=== PATIENT | male | born 1960 | race Caucasian/White ===

== ENCOUNTER 2024-11-22 10:13 | Inpatient (IN) | payer MEDICARE, SELFPAY ==
[2024-11-22] VITALS (9 sets, daily range): BP systolic 134–163; BP diastolic 73–93; PULSE 85–100; RESP 16–28; TEMP 36.8–39.6; O2SAT 93–97; BMI 36.6; BMI 37.0
--- NOTE | 2024-11-22 10:54 | EKG12_ITS ---
Test Reason : GENERAL Blood Pressure : */* mmHG Vent. Rate : 90 BPM Atrial Rate : 90 BPM P-R Int : 178 ms QRS Dur : 118 ms QT Int : 366 ms P-R-T Axes : 52 -34 47 degrees QTcB Int : 447 ms Normal sinus rhythm Left axis deviation Non-specific intra-ventricular conduction delay Abnormal ECG Confirmed by NICHOLAS HASSAN, COBY ([id number]), video effects editor JOSE SILVER ([id number]) on 11/25/2024 9:17:05 AM Referred By: Dm Rudd Confirmed By: COBY PETERSON MD
[2024-11-22] MEDS: 0.9% Normal Saline (1000mL) 1,000 ML 999 ML IV ×2 (11:12→13:10)
[2024-11-22] MEDS: Ondansetron 4 MG/2 ML Vial IV ×2 (11:13→15:53)
[2024-11-22 11:20] LABS: Absolute Neutrophil Count 12.6 X10^3/uL (2.0-7.7); Basophil# 0.04 X10^3/uL; Basophil% 0.3 % (0-1); Eosinophil# 0.61 X10^3/uL; Eosinophils% 3.8 % (0-5); Hematocrit 43.7 % (40-54); Hemoglobin 15.1 g/dL (13.0-16.5); Lymphocyte % 7.5 % (19-41); Mean Corp Hgb Conc 34.6 g/dL (32-36); Mean Corpuscular Hgb 29.6 pg (27.0-32.0); Mean Corpuscular Volume 85.7 fL (80-94); Mean Platelet Vol. 9.2 fl (6.2-12.0); Monocyte# 1.44 X10^3/uL; NRBC Flagged by Analyzer 0 % (0-5); Neutrophil # 12.57 X10^3/uL (2.7-7.7); Neutrophil % 78.8 % (47-70); POSITIVE MORPHOLOGY YES; Platelet Count 225 K/mm3 (150-450); RBC Distribution Width CV 13.6 % (11.6-14.6); RBC Distribution Width SD 42.3 fl (35.1-43.9)
[2024-11-22 11:54] LABS: Lipase 16 U/L (13-75); Troponin T High Sensitivity 14 ng/L (<=22)
--- NOTE | 2024-11-22 12:01 | CT_ITS ---
EXAM: CT Abdomen and Pelvis With Intravenous Contrast CLINICAL INDICATION: RULE OUT STONE, OBSTRUCTION TECHNIQUE: Axial computed tomography images of the abdomen and pelvis with intravenous contrast. This CT exam was performed using one or more of the following dose reduction techniques: automated exposure control, adjustment of the mA and/or kV according to patient size, and/or use of iterative reconstruction technique. COMPARISON: No relevant prior studies available. FINDINGS: LUNG BASES: Unremarkable. No mass. No consolidation. ABDOMEN: LIVER: Hepatomegaly with fatty infiltration. GALLBLADDER AND BILE DUCTS: Unremarkable. No calcified stones. No ductal dilation. PANCREAS: Unremarkable. No mass. No ductal dilation. SPLEEN: Mild splenomegaly. ADRENALS: Unremarkable. No mass. KIDNEYS AND URETERS: Lobulated heterogeneously enhancing lesion of the left kidney measuring up to 16.6 cm. Associated moderate hydronephrosis. This is concerning for RCC with obstruction. Right nephrolithiasis without hydronephrosis. STOMACH AND BOWEL: Fecal retention in the colon consistent with constipation. No obstruction. No mucosal thickening. PELVIS: APPENDIX: No findings to suggest acute appendicitis. BLADDER: Unremarkable. No mass. REPRODUCTIVE: Unremarkable as visualized. ABDOMEN and PELVIS: INTRAPERITONEAL SPACE: Unremarkable. No free air. No significant fluid collection. BONES/JOINTS: No acute fracture. No dislocation. SOFT TISSUES: Unremarkable. VASCULATURE: Unremarkable. No abdominal aortic aneurysm. LYMPH NODES: Unremarkable. No enlarged lymph nodes. CT/Abdomen/Pelvis W IV Cont ONLY IMPRESSION: 1. Lobulated heterogeneously enhancing lesion of the left kidney measuring up to 16.6 cm. Associated moderate hydronephrosis. This is concerning for renal cell carcinoma with obstruction. 2. Hepatomegaly with fatty infiltration. 3. Right nephrolithiasis without hydronephrosis. 4. Fecal retention in the colon consistent with constipation. Findings were discussed with Dr. Pierre by phone on 11/22/2024 at 1315 hours. Reading Location: [facility]
--- NOTE | 2024-11-22 12:03 | EDS_ITS ---
HPI History of Present Illness Chief Complaint: Complaint Narrative Narrative: Patient is a 64-year-old male who is presenting to the ER with multiple complaints. Patient is at bedside. Patient has been sick for approximately 3 weeks. Patient's had dry cough, sinus congestion, flulike symptoms for 3 weeks. Patient traveled to [place] and came back last week. Patient has multiple family members that have flulike symptoms as well. Patient started having blood in his urine last evening and today. Patient's also had 3 days of nausea and vomiting. Patient has had dry cough for 3 weeks, patient has been using NyQuil. Patient has cardiac history, he has 4 stents, 100% blocked RCA, this was fixed back in 2019. Patient feels like he has some acid reflux or heartburn. Patient has no headache or neck pain. Patient has mild shortness of breath, no chest pain tightness. Patient has not had a bowel movement in 2 days, patient has been use [id number] stool softeners. Patient has had flatulence. No history of kidney stone. Patient has no pain to his testicles. Patient did notice a dull ache in his left lower back over the past week, he currently has no left lower back pain, flank pain. He does have some mild left lower quadrant fullness. [facility] Medical History (Updated 11/22/24 @ 17:11 by Radha Christiansen) Anxiety Depression Non-smoker CPAP (continuous positive airway pressure) dependence Chest pain Sleep apnea Sleep apnea High triglycerides Hypertension Coronary artery disease Home Medications ?Medication ?Instructions ?Recorded ?Last Taken ?Type aspirin 81 mg tablet,delayed 81 mg PO DAILY 11/22/24 U nknown History release (Adult Aspirin Regimen) carvedilol 6.25 mg tablet 6.25 mg PO BID 11/22/24 Unkn own History clopidogrel 75 mg tablet 75 mg PO DAILY 11/22/24 Unkn own History gemfibrozil 600 mg tablet 600 mg PO BID 11/22/24 Unkno wn History isosorbide mononitrate 60 mg 60 mg PO DAILY 11/22/24 U nknown History tablet,extended release 24 hr losartan 25 mg tablet 25 mg PO DAILY 11/22/24 Unkn own History multivitamin (Daily Multi-Vitamin 1 tab PO DAILY 11/22 Unknown History tablet) vitamin B complex 1 tab PO DAILY 11/22/24 Unkn own History vitamins A,C,A-wopu-cusfzx 2,148 2 tab PO BID 11/22/24 Unknown History mcg-113 mg-45 mg-17.4 mg tablet (Eye Multivitamin) Allergy/AdvReac Type Severity Reaction Status Date / Time No Known Allergies Allergy Verified 11/22/24 10:15 Surgical History (Updated 11/22/24 @ 17:10 by Radha Christiansen) History of coronary artery stent placement Status post placement of stent in right coronary artery Social History Smoking Status: Never smoker EXAM Physical Exam Const Vital Signs: 11/22/24 10:15 11/22/24 10:17 11/22/24 12:14 Temperature 98.3 F 98.4 F Temperature Source Oral Oral Pulse Rate 85 88 85 Respiratory Rate 16 18 18 Blood Pressure 142/82 H 163/78 H 161/82 H Blood Pressure Mean 102 106 108 Pulse Ox 97 95 93 Oxygen Delivery Method Room Air Room Air 11/22/24 12:55 11/22/24 14:00 Temperature 103.2 F H 103 F H Temperature Source Oral Oral Pulse Rate 90 Respiratory Rate 18 Blood Pressure 134/73 H Blood Pressure Mean 93 Pulse Ox 94 Oxygen Delivery Method MDM MDM MDM Narrative Medical decision making narrative: Patient seen and examined: Patient had flulike symptoms for the past 3 weeks, nausea and vomiting for 3 days, hematuria last night and today. No history of kidney stones. Patient will have IV established, be given IV fluids, abdominal testing, IV Zofran. Differential diagnosis includes but is not limited to: Sinus congestion, flulike symptoms, pneumonia, hematuria, UTI, pyelonephritis, kidney stone, gastroenteritis Relevant laboratory interpretation: Patient white blood cells were 16. Sodium was 132,, dioxide 16, anion gap 18, BUN and creatinine were 21/1.59. Patient creatinine is higher than his normal baseline. Like his acid normal. Urine shows evidence of hemorrhagic cystitis. Radiological studies: CT of the abdomen pelvis shows lobulated heterogeneously enhancing lesion in the left kidney measuring up to 16.6 cm. Moderate hydronephrosis. Concerning for renal cell carcinoma with obstruction. Constipation noted as well. Reevaluation: Social barriers to healthcare: There are no food insecurities, there is no issue with transportation, there are no insurance barriers Disposition: Patient will be admitted to the hospitalist. Patient is given 2 L of IV fluid. Patient was given IV Rocephin. Patient will be admitted to the hospitalist with consultation for neurologist and additional consultations as needed. I did a sit down with the patient and for 10 to 15 minutes and discussed patient's lab work, urine findings, and CAT scans and potential differential diagnosis and therapies that might be done. They are aware of the left renal cell mass. 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 Patient and thankful for time. 1505 I have spoken to Dr. Campos. He will be in consultation he is aware of the left renal cell carcinoma, 16 cm, with, moderate hydronephrosis and concern for obstruction. I spoke to him in the operating room, there was a male nurse that help communicate and then I was on speaker phone with the patient information with Dr. Peraza and discussing patient's case. He agrees in consultation, recommends admission to the hospitalist. Diagnosis: Left renal cell mass 16 cm, UTI, hemorrhagic cystitis, dehydration, leukocytosis, moderate hydronephrosis Lab Data Labs: Laboratory Results - last 24 hr 11/22/24 11/22/24 11:10 12:26 WBC 16.0 H RBC 5.10 Hgb 15.1 Hct 43.7 MCV 85.7 MCH 29.6 MCHC 34.6 RDW Std Deviation 42.3 RDW Coeff of Matilde 13.6 Plt Count 225 MPV 9.2 Immature Gran % (Auto) 0.600 Neut % (Auto) 78.8 H Lymph % (Auto) 7.5 L [place] % (Auto) 9.0 Eos % (Auto) 3.8 Baso % (Auto) 0.3 Absolute Neuts (auto) 12.6 H Absolute Lymphs (auto) 1.20 Nucleated RBC % 0 Platelet Estimate A Polychromasia 1+ Sodium 132 L Potassium 4.1 Chloride 98 Carbon Dioxide 16.2 L Anion Gap 18 H BUN 21 H Creatinine 1.59 H Estim Creat Clear Calc 61.67 Est GFR (MDRD) Non-Af 48 L BUN/Creatinine Ratio 13.0 Glucose 115 H Calcium 8.9 Total Bilirubin < 0.15 AST 831 H ALT 49 H Alkaline Phosphatase 50 Troponin T High Sens 14 Total Protein 6.7 Albumin 3.9 Globulin 2.7 Albumin/Globulin Ratio 1.4 Lipase 16 Urine Color Brown Urine Clarity Cloudy Urine pH 6.5 Ur Specific [place] 1.020 Urine Protein 500 H Urine Glucose (UA) Normal Urine Ketones 5 H Urine Occult Blood 250 H Urine Nitrite Negative Urine Bilirubin Negative Urine Urobilinogen Normal Ur Leukocyte Esterase 100 H Urine RBC 5-10 SEEN Urine WBC 10-25 SEEN Ur Squamous Epith Cells 5-10 SEEN Ur Transition Epith Cell 0-5 SEEN Amorphous Sediment 3+ Urine Bacteria 1+ Urine Mucus 0 SEEN Radiography Diagnostic Testing: Clinical Impression(s) from Imaging Studies Abdomen/Pelvis CT 11/22/24 12:01 IMPRESSION: 1. Lobulated heterogeneously enhancing lesion of the left kidney measuring up to 16.6 cm. Associated moderate hydronephrosis. This is concerning for renal cell carcinoma with obstruction. 2. Hepatomegaly with fatty infiltration. 3. Right nephrolithiasis without hydronephrosis. 4. Fecal retention in the colon consistent with constipation. Findings were discussed with Dr. Pierre by phone on 11/22/2024 at 1315 hours. Reading [facility] Discharge Plan Dx/Rx/DC Orders Clinical Impression: Left renal mass, UTI (urinary tract infection), Hematuria, Acute dehydration, Flu-like symptoms Disposition Disposition: Acute Care Hospital [facility] Discharge Date/Time: 11/22/24 16:59
[2024-11-22 12:06] LABS: ALB/GLOB Ratio 1.4 RATIO (0.9-2.4); Alanine Aminotransfer ALT/SGPT 49 U/L (<=46); Albumin, Serum 3.9 g/dL (3.4-4.8); Alkaline Phosphatase 50 U/L (40-129); Anion Gap 18 (5-15); BUN 21 mg/dL (4-19); Calcium,Total 8.9 mg/dL (7.6-11.0); Carbon Dioxide 16.2 mmol/L (21.0-32.0); Chloride 98 mmol/L (98-108); Creatinine, Serum 1.59 mg/dL (0.70-1.20); EST Glomerular Filtration Rate 48 (>60); Estimated Creatinine Clearance 61.67 ml/min (50-250); Globulin 2.7 g/dL (2.2-4.2); Glucose 115 mg/dL (70-99); Potassium 4.1 mmol/L (3.3-5.1); Protein, Total 6.7 g/dL (5.9-8.4); Sodium Level 132 mmol/L (133-145); Total Bilirubin < 0.15 mg/dL (0.00-1.30)
[2024-11-22 12:09] LABS: AST(SGOT) 831 U/L (<=37)
[2024-11-22 12:33] LABS: Mucous, Urine 0 SEEN /hpf (<or=2+)
[2024-11-22 12:38] LABS: Color, Urine Brown (Yellow); Glucose, Dipstick Normal (Normal); Ketone-Dipstick 5 mg/dl (Negative); Leukocyte Esterase-Dipstick 100 /ul (Negative); Nitrite-Dipstick Negative (Negative); Occult Blood-Urine 250 /ul (Negative); Protein-Dipstick 500 mg/dl (Negative); Urine Bilirubin Dipstick Negative (Negative); Urine Clarity Cloudy (Clear); Urine Urobilinogen Normal (Normal); Urine pH 6.5 (5.0 - 8.0)
[2024-11-22 12:47] LABS: Red Blood Cells-Urine 5-10 SEEN /hpf (0-5)
[2024-11-22 12:48] LABS: Amorphous Sediment 3+; Bacteria 1+ /hpf (None Seen); Squamous Epithelial Cells - UA 5-10 SEEN /hpf (0-5); Transitional Epithelial - Ur 0-5 SEEN /hpf (0-5); White Blood Cells 10-25 SEEN /hpf (0-5)
[2024-11-22] MEDS: Acetaminophen 325 MG Tablet 650 MG PO ×2 (13:10→20:13)
[2024-11-22 13:19] LABS: Platelet Estimate A (ADEQ); Polychromasia 1+
[2024-11-22] MEDS: Ceftriaxone 1 GM/50 ML BAG IV (13:36)
[2024-11-22] MEDS: Mag Hydrox/Al Hydrox/Simeth 30 ML UDC PO (15:53)
[2024-11-22] MEDS: Lidocaine 2% Viscous15 ML UDC 15 ML PO (15:53)
[2024-11-22] MEDS: Morphine 4 MG/ML Syringe IV (15:54)
[2024-11-22] MEDS: Famotidine 200 MG/20 ML MDV 20 MG in 0.9% Normal Saline (Pres. free 8 ML 300 MG IV (15:56)
--- NOTE | 2024-11-22 16:26 | HP.PCM.HOS_ITS ---
HPI - General General Date of Admission: 11/22/24 Date of Service: 11/22/24 Chief Complaint: Blood and urine HPI Narrative CLINTON MONAHAN, is a 64-year-old male with history of sleep apnea, hypertension, coronary artery disease with history of right stent placement presented to [facility] ED 11/22/2024 with multiple complaints. He reports he has been sick for about 3 weeks with dry cough, sinus congestion and flulike symptoms. He traveled to [place] and came back last week and has multiple sick contacts. Additionally patient started having blood in his urine last night and today with 3 days of associated nausea and vomiting. Also dry cough for 3 weeks and some heartburn, mild shortness of breath but no chest pain. In the ED patient initially afebrile however developed a temperature of 103.2 otherwise vitally stable, CMP demonstrated sodium of 132 with a bicarb of 16, anion gap of 18 and creatinine of 1.59, AST 31 with ALT of 49. But no previous values or baselines available. White blood cell count of 16 and patient UA with occult blood, leuk esterase, 1+ bacteria. CT of the abdomen obtained which showed a lobulated heterogenously enhancing lesion of the left kidney measuring up to 16.6 cm and moderate hydronephrosis with concern for renal cell carcinoma with obstruction. Urology contacted who recommended medical admission they would see patient in consult. Patient evaluated at bedside, reports that he did have some shortness of breath and cough with flulike symptoms for a couple of weeks but over the past 3 days he has had some suprapubic discomfort and some dull left aching and since yesterday he has had hematuria, has had some intermittent nausea and he and family member do report that he has had fevers off and on for the past couple of weeks. Also notes constipation and has not had a bowel movement 2 to 3 days which is abnormal for him. [facility] Medical History (Updated 11/22/24 @ 16:[address] Belkis Mills MD) Coronary artery disease High triglycerides Hypertension Sleep apnea Sleep apnea Home Medications ?Medication ?Instructions ?Recorded ?Last Taken ?Type aspirin 81 mg tablet,delayed 81 mg PO DAILY 11/22/24 U nknown History release (Adult Aspirin Regimen) carvedilol 6.25 mg tablet 6.25 mg PO BID 11/22/24 Unkn own History clopidogrel 75 mg tablet 75 mg PO DAILY 11/22/24 Unkn own History gemfibrozil 600 mg tablet 600 mg PO BID 11/22/24 Unkno wn History isosorbide mononitrate 60 mg 60 mg PO DAILY 11/22/24 U nknown History tablet,extended release 24 hr losartan 25 mg tablet 25 mg PO DAILY 11/22/24 Unkn own History multivitamin (Daily Multi-Vitamin 1 tab PO DAILY 11/22 Unknown History tablet) vitamin B complex 1 tab PO DAILY 11/22/24 Unkn own History vitamins A,C,I-mlwa-dffajg 2,148 2 tab PO BID 11/22/24 Unknown History mcg-113 mg-45 mg-17.4 mg tablet (Eye Multivitamin) Allergy/AdvReac Type Severity Reaction Status Date / Time No Known Allergies Allergy Verified 11/22/24 10:15 Surgical History (Updated 11/22/24 @ 10:28 by Codi Hdez) Status post placement of stent in right coronary artery Social History Smoking Status: Never smoker ROS ROS Narrative General: Intermittent fevers over the past couple of weeks HENT: Denies headache, had some intermittent URI-like symptoms EYES: Denies changes in vision Resp: Had had faint cough, had shortness of breath around a week ago, not particularly feeling short of breath today Cardiac: Denies chest pain GI: Suprapubic and some dull left-sided pain, nausea and constipation : Hematuria Extremity: Denies swelling MSK: Denies weakness Neuro: Denies any numbness/tingling Heme: Denies any bleeding or bruising Skin: Denies rashes Psychiatric: No complaints voiced Vital Signs Vital Signs Vital Signs: 11/22/24 10:15 11/22/24 10:17 11/22/24 12:14 Temperature 98.3 F 98.4 F Temperature Source Oral Oral Pulse Rate 85 88 85 Respiratory Rate 16 18 18 Blood Pressure 142/82 H 163/78 H 161/82 H Blood Pressure Mean 102 106 108 Pulse Ox 97 95 93 Oxygen Delivery Method Room Air Room Air 11/22/24 12:55 11/22/24 14:00 11/22/24 16:00 Temperature 103.2 F H 103 F H Temperature Source Oral Oral Pulse Rate 90 98 Respiratory Rate 18 26 H Blood Pressure 134/73 H 143/78 H Blood Pressure Mean 93 99 Pulse Ox 94 93 Oxygen Delivery Method Room Air 11/22/24 16:15 Temperature 100.0 F H Temperature Source Pulse Rate 98 Respiratory Rate 25 H Blood Pressure 143/78 H Blood Pressure Mean 99 Pulse Ox 93 Oxygen Delivery Method Weight Weight: 119.295 kg Body Mass Index (BMI) 36.6 Physical Exam Narrative General: Alert, oriented, appears uncomfortable HEENT: Atraumatic, normocephalic Eyes: Anicteric, normal conjunctiva, extraocular movements grossly intact Neck: Supple Respiratory: Tachypneic but no overt wheezes or rhonchi Cardiovascular: Regular rate and rhythm GI: Soft, nontender overall without rebound, guarding, rigidity Extremities: No edema Musculoskeletal: Moving all extremities Neuro: No overt focal neurological deficits Skin: No rashes appreciated Psych: Cooperative Results Lab / Micro Data 11/22/24 11:10 11/22/24 11:10 Labs: Laboratory Results - last 24 hr 11/22/24 11:10: WBC 16.0 H, RBC 5.10, Hgb 15.1, Hct 43.7, MCV 85.7, MCH 29.6, MCHC 34.6, RDW Std Deviation 42.3, RDW Coeff of Matilde 13.6, Plt Count 225, MPV 9.2, Immature Gran % (Auto) 0.600, Neut % (Auto) 78.8 H, Lymph % (Auto) 7.5 L, [place] % (Auto) 9.0, Eos % (Auto) 3.8, Baso % (Auto) 0.3, Absolute Neuts (auto) 12.6 H, Absolute Lymphs (auto) 1.20, Nucleated RBC % 0, Platelet Estimate A, Polychromasia 1+, Sodium 132 L, Potassium 4.1, Chloride 98, Carbon Dioxide 16.2 L, Anion Gap 18 H, BUN 21 H, Creatinine 1.59 H, Estim Creat Clear Calc 61.67, E st GFR (MDRD) Non-Af 48 L, BUN/Creatinine Ratio 13.0, Glucose 115 H, Calcium 8.9, Total Bilirubin < 0.15, AST 831 H, ALT 49 H, Alkaline Phosphatase 50, Troponin T High Sens 14, Total Protein 6.7, Albumin 3.9, Globulin 2.7, Albumin/Globulin Ratio 1.4, Lipase 16 11/22/24 12:26: Urine Color Brown, Urine Clarity Cloudy, Urine pH 6.5, Ur Specific [place] 1.020, Urine Protein 500 H, Urine Glucose (UA) Normal, Urine Ketones 5 H, Urine Occult Blood 250 H, Urine Nitrite Negative, Urine Bilirubin Negative, Urine Urobilinogen Normal, Ur Leukocyte Esterase 100 H, Urine RBC 5-10 SEEN, Urine WBC 10-25 SEEN, Ur Squamous Epith Cells 5-10 SEEN, Ur Transition Epith Cell 0-5 SEEN, Amorphous Sediment 3+, Urine Bacteria 1+, Urine Mucus 0 SEEN Imaging Radiology Impression Abdomen/Pelvis CT 11/22/24 12:01 IMPRESSION: 1. Lobulated heterogeneously enhancing lesion of the left kidney measuring up to 16.6 cm. Associated moderate hydronephrosis. This is concerning for renal cell carcinoma with obstruction. 2. Hepatomegaly with fatty infiltration. 3. Right nephrolithiasis without hydronephrosis. 4. Fecal retention in the colon consistent with constipation. Findings were discussed with Dr. Pierre by phone on 11/22/2024 at 1315 hours. Reading [facility] Assessment & Plan Assessment/Plan (1) Left renal mass: (2) Hematuria: (3) UTI (urinary tract infection): (4) Hydronephrosis: PLAN: Plan # Kidney lesion with associated moderate hydronephrosis on the left -Lobulated heterogenously enhancing lesion of the left kidney measuring up to 16.6 cm with associated moderate hydronephrosis, concerning for renal cell carcinoma with obstruction -Urology consult -I's and O's -Pain control #Concern for UTI -UA suspicious for UTI, white blood cell count 16 and patient febrile -Will continue empiric antibiotics -Urine culture ordered # KATHIA versus CKD -Patient with creatinine of 1.59 with no previous baseline, unclear if this is acute or chronic -Given kidney mass with moderate hydronephrosis is possible it is acute -IV fluids -Wunning losartan at this time # Elevated liver function tests -Unclear etiology and no previous baseline -CT with hepatomegaly with fatty infiltration -Will hold gemfibrozil -Repeat liver function in the a.m. # History of coronary artery disease -With 4 stents -Will continue carvedilol at lower dose in the event patient may need anesthesia -Patient on aspirin -Holding Plavix for now, will need to clarify if/when this can be resumed given patient's hematuria and if he may undergo intervention #Constipation -Scheduled bowel regimen #DVT ppx: SCDs Belkis Mills MD Charges/Coding Visit Charges Inpatient E&M: 65717 Init Hosp L2
--- NOTE | 2024-11-22 16:43 | CON.PCM.UR_ITS ---
Assessment & Plan Assessment/Plan (1) Hydronephrosis: PLAN: Observation of the hydronephrosis no intervention necessary (2) Flu-like symptoms: PLAN: Multiple new contacts with illness could be related (3) Acute dehydration: (4) Hematuria: PLAN: Observation of the hematuria prior from the bleeding renal mass (5) UTI (urinary tract infection): (6) Left renal mass: PLAN: Large renal mass eventually what the set him up for surgery to perform a left radical nephrectomy but at this point I think he needs to be stabilized and worked up, medically optimized (7) Shortness of breath: PLAN: He does have shortness of breath which does concern me I do not think this is really related to his underlying respiratory illness could be another source? HPI Consult Data Date of Consult: 11/22/24 HPI Narrative Reason for Consultation: Large left renal mass HPI Narrative: CLINTON MONAHAN, is a 64 M who presents to the emergency room with acute illness he has but had several sick contacts and has like a cough and upper respiratory infection and has noticed some mild shortness of breath. He was admitted for he gross hematuria and left flank pain CT scan demonstrates a very large mass in the left kidney no obvious signs of metastatic disease the mass is certainly consistent with a malignancy of the kidney. He does have a history of hypertension, sleep apnea, heart disease requiring multiple heart stents and he sees a senior web engineer in [facility]. Patient is currently be admitted because of this renal mass and also his other symptoms. [facility] Medical History Sleep apnea Sleep apnea High triglycerides Hypertension Coronary artery disease Home Medications ?Medication ?Instructions ?Recorded ?Last Taken ?Type aspirin 81 mg tablet,delayed 81 mg PO DAILY 11/22/24 U nknown History release (Adult Aspirin Regimen) carvedilol 6.25 mg tablet 6.25 mg PO BID 11/22/24 Unkn own History clopidogrel 75 mg tablet 75 mg PO DAILY 11/22/24 Unkn own History gemfibrozil 600 mg tablet 600 mg PO BID 11/22/24 Unkno wn History isosorbide mononitrate 60 mg 60 mg PO DAILY 11/22/24 U nknown History tablet,extended release 24 hr losartan 25 mg tablet 25 mg PO DAILY 11/22/24 Unkn own History multivitamin (Daily Multi-Vitamin 1 tab PO DAILY 11/22 Unknown History tablet) vitamin B complex 1 tab PO DAILY 11/22/24 Unkn own History vitamins A,C,H-ujir-yerfgr 2,148 2 tab PO BID 11/22/24 Unknown History mcg-113 mg-45 mg-17.4 mg tablet (Eye Multivitamin) Allergy/AdvReac Type Severity Reaction Status Date / Time No Known Allergies Allergy Verified 11/22/24 10:15 Surgical History Status post placement of stent in right coronary artery Social History Smoking Status: Never smoker ROS Constitutional Constitutional: Denies chills, fever(s) or malaise Eyes Eyes: Denies blurry vision or change in vision ENT HEENT: Reports none Cardiovascular Cardiovascular: Denies chest pain or palpitations Respiratory/Chest Respiratory/Chest: Denies cough or shortness of breath with exertion Gastrointestinal Gastrointestinal: Denies abdominal pain, constipation or diarrhea Musculoskeletal Musculoskeletal: Denies back pain, joint stiffness or joint swelling Integumentary Integumentary: Denies dry skin, jaundice, lesions or rash Neurologic Neurologic: Denies confusion, syncope or weakness Psychiatric Psychiatric: Reports none; Denies anxiety or depression Endocrine Endocrinology: Denies excessive sweating, fatigue or flushing Hematologic/Lymphatic Hematologic/Lymphatic: Denies anemia, easy bleeding or easy bruising Physical Exam Narrative Somewhat labored breathing 93% on room air Const alert and oriented x3 General Appearance: cooperative HEENT EAC's normal and TM's normal bilaterally Eyes PERRL and EOMs intact bilaterally Neck no lymphadenopathy, supple and no JVD Lymph Lymphatic: no lymphadenopathy noted and no lymphedema noted Cardio regular rate and regular rhythm GI non-tender GI Narrative: Obese soft abdomen Back/Spine no CVA tenderness Skin no rashes or lesions noted Neuro CN's II-XII intact bilaterally Speech: speech normal Motor Exam: strength 5/5 throughout Psych thought process normal and affect normal Attitude: calm Medical Records Data Attestation: I reviewed the patient's medical records Lab / Micro Data 11/22/24 11:10 11/22/24 11:10 Labs: Laboratory Results - last 24 hr 11/22/24 11:10: WBC 16.0 H, RBC 5.10, Hgb 15.1, Hct 43.7, MCV 85.7, MCH 29.6, MCHC 34.6, RDW Std Deviation 42.3, RDW Coeff of Matilde 13.6, Plt Count 225, MPV 9.2, Immature Gran % (Auto) 0.600, Neut % (Auto) 78.8 H, Lymph % (Auto) 7.5 L, [place] % (Auto) 9.0, Eos % (Auto) 3.8, Baso % (Auto) 0.3, Absolute Neuts (auto) 12.6 H, Absolute Lymphs (auto) 1.20, Nucleated RBC % 0, Platelet Estimate A, Polychromasia 1+, Sodium 132 L, Potassium 4.1, Chloride 98, Carbon Dioxide 16.2 L, Anion Gap 18 H, BUN 21 H, Creatinine 1.59 H, Estim Creat Clear Calc 61.67, E st GFR (MDRD) Non-Af 48 L, BUN/Creatinine Ratio 13.0, Glucose 115 H, Calcium 8.9, Total Bilirubin < 0.15, AST 831 H, ALT 49 H, Alkaline Phosphatase 50, Troponin T High Sens 14, Total Protein 6.7, Albumin 3.9, Globulin 2.7, Albumin/Globulin Ratio 1.4, Lipase 16 11/22/24 12:26: Urine Color Brown, Urine Clarity Cloudy, Urine pH 6.5, Ur Specific [place] 1.020, Urine Protein 500 H, Urine Glucose (UA) Normal, Urine Ketones 5 H, Urine Occult Blood 250 H, Urine Nitrite Negative, Urine Bilirubin Negative, Urine Urobilinogen Normal, Ur Leukocyte Esterase 100 H, Urine RBC 5-10 SEEN, Urine WBC 10-25 SEEN, Ur Squamous Epith Cells 5-10 SEEN, Ur Transition Epith Cell 0-5 SEEN, Amorphous Sediment 3+, Urine Bacteria 1+, Urine Mucus 0 SEEN Imaging Radiology Impression Abdomen/Pelvis CT 11/22/24 12:01 IMPRESSION: 1. Lobulated heterogeneously enhancing lesion of the left kidney measuring up to 16.6 cm. Associated moderate hydronephrosis. This is concerning for renal cell carcinoma with obstruction. 2. Hepatomegaly with fatty infiltration. 3. Right nephrolithiasis without hydronephrosis. 4. Fecal retention in the colon consistent with constipation. Findings were discussed with Dr. Pierre by phone on 11/22/2024 at 1315 hours. Reading [facility]
--- NOTE | 2024-11-22 16:47 | CASEMGMT ---
Care Management Face to Face with patient for initial transition planning/care coordination assessment in the ED. This marketing writer introduced self and role at [facility]. Patient alert and oriented. Patient willing to participate in assessment and is able to answer all questions appropriately. Patient's , Cecile, bedside. Care providers, pharmacy, and demographics verified. Admitting Diagnosis: Left renal mass, Hematuria, UTI, Hydronephrosis Other diagnosis history: sleep apnea, hypertension, coronary artery disease PCP: Elizabeth Saldivar Specialists: Abel Do, corrugator helper at [facility]. A doctor for sleep apnea, but patient could not recall the name. Preferred Pharmacy: [facility] in [place] Insurance: AARP MCR Adv Prescription Benefit: yes Living Will/HPOA: none and denies needing information LNOK: , Cecile and 5 daughters Living Arrangements: live with , oldest daughter, son in law, and grandson. Two story home with 8 steps to enter, then 2 full flights up to patient's bedroom/bathroom. Independent with all ADLs and IADLs at baseline. Transportation: patient drives DME: CPAP HHC: none SNF/Rehab: none Community Resources: none Patient goals: Patient wishes to discharge home, denies need for home health care at this time. Patient denies any further needs or concerns at this time. Disposition Plan: admission to acute; RN CM/SW to follow for discharge planning needs that may arise. Kavya Conti, SNAKER TRACTOR DRIVER, LAST [employer]TER
--- NOTE | 2024-11-22 16:48 | PCM.DC ---
Discharge Instructions Diet Discharge Diet: No restrictions DC O2, CPAP, BIPAP needs Home O2 Discharge instructions: No Follow Up Care Please Follow Up With: Farhat Campos MD When: Call [phone] for an appointment Test Results: Test results from this visit will be discussed in further detail at your follow-up appointment, if applicable. Discharge Plan Admission Admit Date/Time: 11/22/24 15:54 Attending Provider: Belkis Mills Primary Care Provider: Elizabeth Saldivar NP Consulting Providers: Farhat Campos Discharge Orders/Prescriptions Prescriptions: No Action carvedilol 6.25 mg tablet 6.25 mg PO BID gemfibrozil 600 mg tablet 600 mg PO BID Eye Multivitamin 2,148 mcg-113 mg-45 mg-17.4mg tablet 2 tab PO BID Rx Instructions: administer with AM and PM meals vitamin B complex Tablet 1 tab PO DAILY clopidogrel 75 mg tablet 75 mg PO DAILY isosorbide mononitrate 60 mg tablet extended release 24 hr 60 mg PO DAILY losartan 25 mg tablet 25 mg PO DAILY aspirin [Adult Aspirin Regimen] 81 mg tablet,delayed release (DR/EC) 81 mg PO DAILY multivitamin [Daily Multi-Vitamin] Tablet 1 tab PO DAILY Referrals / Follow Up: Elizabeth Saldivar NP, BROADCAST OPERATIONS MANAGER-C [Primary Care Provider] -
[2024-11-22 16:58] LABS: Lactic Acid 1.3 mmol/L (0.0-2.0)
[2024-11-22] MEDS: 0.9% Normal Saline (1000mL) 1,000 ML 50 ML IV (18:07)
[2024-11-22] MEDS: Carvedilol 3.125 MG TABLET PO (18:10)
[2024-11-22] MEDS: Senna/Docusate Sodium 1 Tablet 2 TABLET PO (22:05)
[2024-11-23] VITALS (16 sets, daily range): BP systolic 117–159; BP diastolic 69–96; PULSE 75–99; RESP 18–38; TEMP 36.5–39.5; O2SAT 88–97; BMI 37.0
[2024-11-23] MEDS: Acetaminophen 325 MG Tablet 650 MG PO ×3 (02:16→16:02)
[2024-11-23 07:16] LABS: Absolute Neutrophil Count 13.7 X10^3/uL (2.0-7.7); Basophil# 0.07 X10^3/uL; Basophil% 0.4 % (0-1); Eosinophil# 0.07 X10^3/uL; Eosinophils% 0.4 % (0-5); Hematocrit 42.8 % (40-54); Hemoglobin 14.7 g/dL (13.0-16.5); Lymphocyte % 9.1 % (19-41); Mean Corp Hgb Conc 34.3 g/dL (32-36); Mean Corpuscular Hgb 30.1 pg (27.0-32.0); Mean Corpuscular Volume 87.7 fL (80-94); Mean Platelet Vol. 9.6 fl (6.2-12.0); Monocyte# 1.86 X10^3/uL; Monocyte% 10.6 % (0-10); NRBC Flagged by Analyzer 0 % (0-5); Neutrophil # 13.69 X10^3/uL (2.7-7.7); Neutrophil % 78.3 % (47-70); POSITIVE DIFFERENTIAL YES; POSITIVE MORPHOLOGY YES; Platelet Count 193 K/mm3 (150-450); RBC Distribution Width SD 44.7 fl (35.1-43.9); Red Blood Count 4.88 M/mm3 (4.6-6.2); White Blood Count 17.5 K/mm3 (4.4-11.0)
[2024-11-23 07:28] LABS: Differential Indicated SCAN CRITERIA MET
--- NOTE | 2024-11-23 08:03 | NURSING ---
on step down monitor as nursing measure
[2024-11-23] MEDS: Carvedilol 3.125 MG TABLET PO ×2 (08:08→16:04)
[2024-11-23] MEDS: Senna/Docusate Sodium 1 Tablet 2 TABLET PO ×2 (08:08→21:02)
[2024-11-23] MEDS: Aspirin E.C. 81 MG Tablet PO (08:08)
[2024-11-23] MEDS: oxyCODONE 5 MG Tablet PO ×2 (08:08→21:00)
[2024-11-23] MEDS: Isosorbide Mononitrate 60 MG Tablet PO (08:09)
[2024-11-23 08:13] LABS: ALB/GLOB Ratio 1.1 RATIO (0.9-2.4); AST(SGOT) 567 U/L (<=37); Alanine Aminotransfer ALT/SGPT 39 U/L (<=46); Albumin, Serum 3.4 g/dL (3.4-4.8); Alkaline Phosphatase 43 U/L (40-129); Anion Gap 15 (5-15); BUN 24 mg/dL (4-19); Calcium,Total 8.2 mg/dL (7.6-11.0); Carbon Dioxide 18.4 mmol/L (21.0-32.0); Chloride 99 mmol/L (98-108); Creatinine, Serum 1.85 mg/dL (0.70-1.20); EST Glomerular Filtration Rate 40 (>60); Estimated Creatinine Clearance 53.25 ml/min (50-250); Glucose 112 mg/dL (70-99); Potassium 4.1 mmol/L (3.3-5.1); Protein, Total 6.5 g/dL (5.9-8.4); Sodium Level 133 mmol/L (133-145); Total Bilirubin 0.68 mg/dL (0.00-1.30)
--- NOTE | 2024-11-23 08:35 | PN.HOSP_ITS ---
Subjective Subjective He did have a fever overnight to 103,, urology is planning to put a stent in to help drain the kidney Objective Data Objective Data Vital Signs: Vital Signs Temp Pulse Resp BP Pulse Ox O2 Del Method O2 Flow Rate 97.7 F L 87 24 H 145/80 H 96 Room Air 2 11/23/24 07:56 11/23/24 08:02 11/23/24 08:02 11/23/24 08:02 11/23/24 08:02 11/23/24 07:56 11/22/24 20:37 Oxygen Flow Rate (L/min) 2 Oxygen Delivery Method Room Air Weight: 265 lb 6.4 oz Body Mass Index (BMI) 37.0 Intake & Output: Intake and Output for Last 24 Hours 11/22/24 11/23/24 11/24/24 03:59 03:59 03:59 Intake Total 2260 / 2260 Output Total 700 / 700 Balance 1560 / 1560 Lab / Micro Data 11/23/24 06:42 11/23/24 06:42 Labs: Laboratory Results - last 24 hr 11/22/24 11:10: WBC 16.0 H, RBC 5.10, Hgb 15.1, Hct 43.7, MCV 85.7, MCH 29.6, MCHC 34.6, RDW Std Deviation 42.3, RDW Coeff of Matilde 13.6, Plt Count 225, MPV 9.2, Immature Gran % (Auto) 0.600, Neut % (Auto) 78.8 H, Lymph % (Auto) 7.5 L, [place] % (Auto) 9.0, Eos % (Auto) 3.8, Baso % (Auto) 0.3, Absolute Neuts (auto) 12.6 H, Absolute Lymphs (auto) 1.20, Nucleated RBC % 0, Platelet Estimate A, Polychromasia 1+, Sodium 132 L, Potassium 4.1, Chloride 98, Carbon Dioxide 16.2 L, Anion Gap 18 H, BUN 21 H, Creatinine 1.59 H, Estim Creat Clear Calc 61.67, E st GFR (MDRD) Non-Af 48 L, BUN/Creatinine Ratio 13.0, Glucose 115 H, Calcium 8.9, Total Bilirubin < 0.15, AST 831 H, ALT 49 H, Alkaline Phosphatase 50, Troponin T High Sens 14, Total Protein 6.7, Albumin 3.9, Globulin 2.7, Albumin/Globulin Ratio 1.4, Lipase 16 11/22/24 12:26: Urine Color Brown, Urine Clarity Cloudy, Urine pH 6.5, Ur Specific [place] 1.020, Urine Protein 500 H, Urine Glucose (UA) Normal, Urine Ketones 5 H, Urine Occult Blood 250 H, Urine Nitrite Negative, Urine Bilirubin Negative, Urine Urobilinogen Normal, Ur Leukocyte Esterase 100 H, Urine RBC 5-10 SEEN, Urine WBC 10-25 SEEN, Ur Squamous Epith Cells 5-10 SEEN, Ur Transition Epith Cell 0-5 SEEN, Amorphous Sediment 3+, Urine Bacteria 1+, Urine Mucus 0 SEEN 11/22/24 16:00: Lactic Acid 1.3 11/23/24 06:42: WBC 17.5 H, RBC 4.88, Hgb 14.7, Hct 42.8, MCV 87.7, MCH 30.1, MCHC 34.3, RDW Std Deviation 44.7 H, RDW Coeff of Matilde 14.0, Plt Count 193, MPV 9.6, Immature Gran % (Auto) 1.200 H, Neut % (Auto) 78.3 H, Lymph % (Auto) 9.1 L, [place] % (Auto) 10.6 H, Eos % (Auto) 0.4, Baso % (Auto) 0.4, Absolute Neuts (auto) 13.7 H, Absolute Lymphs (auto) 1.60, Nucleated RBC % 0, Sodium 133, Potassium 4.1, Chloride 99, Carbon Dioxide 18.4 L, Anion Gap 15, BUN 24 H, Creatinine 1.85 H, Estim Creat Clear Calc 53.25, Est GFR (MDRD) Non-Af 40 L, BUN/Creatinine Ratio 13.0, Glucose 112 H, Calcium 8.2, Total Bilirubin 0.68, AST 567 H, ALT 39, Alkaline Phosphatase 43, Total Protein 6.5, Albumin 3.4, Globulin 3.0, Albumin/Globulin Ratio 1.1 Micro: Microbiology 11/23/24 01:45 Mucosa - Nasopharyngeal Respiratory Panel (PCR) - Final 11/23/24 02:00 Nasal Secretion SARS-CoV-2 Antigen (Rapid) - Final Radiography Diagnostic Testing: Radiology Impression Abdomen/Pelvis CT 11/22/24 12:01 IMPRESSION: 1. Lobulated heterogeneously enhancing lesion of the left kidney measuring up to 16.6 cm. Associated moderate hydronephrosis. This is concerning for renal cell carcinoma with obstruction. 2. Hepatomegaly with fatty infiltration. 3. Right nephrolithiasis without hydronephrosis. 4. Fecal retention in the colon consistent with constipation. Findings were discussed with Dr. Pierre by phone on 11/22/2024 at 1315 hours. Reading Location: [facility] Physical Exam Narrative General: Alert, Oriented x3, Cooperative, No apparent distress HEENT: Atraumatic, PERRLA, EOMI, Normocephalic Oral: Moist Mucosa Neck: Supple, No JVD Lungs: Diminished, Normal air movement, No rhonchi, No wheeze, No rales Cardiovascular: Tachycardic, Regular Rhythm, Normal S1, Normal S2, No murmurs Abdomen: Soft, Non Tender, Non-Distended, No Hepato-splenomegaly Extremities: No edema, Capillary Refill Less than 3 Seconds Skin: No rashes, No breakdown Musculoskeletal: No Tenderness to Palpation of Joints or Extremities Neurological: No focal neurological deficits, Motor Exam 5/5 strength throughout, Sensory exam intact to light touch and pain Psych/Mental Status: Flat Assessment & Plan Assessment/Plan (1) Left renal mass: (2) Hematuria: (3) UTI (urinary tract infection): (4) Hydronephrosis: PLAN: Plan 1. Left renal mass with hydronephrosis and UTI/KATHIA versus CKD ? Appreciate urology's assistance, plan for stent in the morning ? Continue with antibiotics ? Continue with IV fluids ? Cultures are pending ? If the white count continues to climb tomorrow, will broaden antibiotics ? Renal function increased today, unclear what his baseline is continue to monitor 2. Essential HTN/HLD/CAD status post stents ? Continue with his home blood pressure medications ? Blood pressure stable ? Will monitor and make adjustments as necessary ? Continue with aspirin hold Plavix ? Given renal function, will hold losartan 3. Constipation ? Continue with suppositories may need MiraLAX ? Fleet enema is available DVT: SCDs Charges/Coding Visit Charges Inpatient E&M: 38383 Subs Hosp L2
--- NOTE | 2024-11-23 09:30 | CON.PCM.UR_ITS ---
HPI Consult Data Date of Consult: 11/23/24 HPI Narrative Reason for Consultation: Left renal mass HPI Narrative: CLINTON MONAHAN, is a 64 M who presents with a very large left renal mass and possible infection he did have a fever of 103 last night white count up to 17,000 the mass is causing obstruction of the upper pole of the left kidney, this could be a source of the infection this make him n.p.o. at midnight tonight and may have to take him to surgery tomorrow just put a stent in just to drain out possible infection of the left kidney as caused by obstruction from this mass eventually this mass would need to be removed but if there is obstruction of the collecting system and infection may have to put him on the schedule for tomorrow for just a stent placement this is a temporary measure to drain any infection to get him optimized for surgery to remove this left large renal mass. So I lizet make him n.p.o. at midnight see him tomorrow morning and we may have to take him to surgery but a stent in that left kidney. [facility] Medical History (Updated 11/22/24 @ 17:11 by Radha Christiansen) Anxiety Depression Non-smoker CPAP (continuous positive airway pressure) dependence Chest pain Sleep apnea Sleep apnea High triglycerides Hypertension Coronary artery disease Home Medications ?Medication ?Instructions ?Recorded ?Last Taken ?Type aspirin 81 mg tablet,delayed 81 mg PO DAILY 11/22/24 U nknown History release (Adult Aspirin Regimen) carvedilol 6.25 mg tablet 6.25 mg PO BID 11/22/24 Unkn own History clopidogrel 75 mg tablet 75 mg PO DAILY 11/22/24 Unkn own History gemfibrozil 600 mg tablet 600 mg PO BID 11/22/24 Unkno wn History isosorbide mononitrate 60 mg 60 mg PO DAILY 11/22/24 U nknown History tablet,extended release 24 hr losartan 25 mg tablet 25 mg PO DAILY 11/22/24 Unkn own History multivitamin (Daily Multi-Vitamin 1 tab PO DAILY 11/22 Unknown History tablet) vitamin B complex 1 tab PO DAILY 11/22/24 Unkn own History vitamins A,C,M-olzp-wtfgyz 2,148 2 tab PO BID 11/22/24 Unknown History mcg-113 mg-45 mg-17.4 mg tablet (Eye Multivitamin) Allergy/AdvReac Type Severity Reaction Status Date / Time No Known Allergies Allergy Verified 11/22/24 10:15 Surgical History (Updated 11/22/24 @ 17:10 by Radha Christiansen) History of coronary artery stent placement Status post placement of stent in right coronary artery Social History Smoking Status: Never smoker Lab / Micro Data 11/23/24 06:42 11/23/24 06:42 Labs: Laboratory Results - last 24 hr 11/22/24 11:10: WBC 16.0 H, RBC 5.10, Hgb 15.1, Hct 43.7, MCV 85.7, MCH 29.6, MCHC 34.6, RDW Std Deviation 42.3, RDW Coeff of Matilde 13.6, Plt Count 225, MPV 9.2, Immature Gran % (Auto) 0.600, Neut % (Auto) 78.8 H, Lymph % (Auto) 7.5 L, [place] % (Auto) 9.0, Eos % (Auto) 3.8, Baso % (Auto) 0.3, Absolute Neuts (auto) 12.6 H, Absolute Lymphs (auto) 1.20, Nucleated RBC % 0, Platelet Estimate A, Polychromasia 1+, Sodium 132 L, Potassium 4.1, Chloride 98, Carbon Dioxide 16.2 L, Anion Gap 18 H, BUN 21 H, Creatinine 1.59 H, Estim Creat Clear Calc 61.67, E st GFR (MDRD) Non-Af 48 L, BUN/Creatinine Ratio 13.0, Glucose 115 H, Calcium 8.9, Total Bilirubin < 0.15, AST 831 H, ALT 49 H, Alkaline Phosphatase 50, Troponin T High Sens 14, Total Protein 6.7, Albumin 3.9, Globulin 2.7, Albumin/Globulin Ratio 1.4, Lipase 16 11/22/24 12:26: Urine Color Brown, Urine Clarity Cloudy, Urine pH 6.5, Ur Specific [place] 1.020, Urine Protein 500 H, Urine Glucose (UA) Normal, Urine Ketones 5 H, Urine Occult Blood 250 H, Urine Nitrite Negative, Urine Bilirubin Negative, Urine Urobilinogen Normal, Ur Leukocyte Esterase 100 H, Urine RBC 5-10 SEEN, Urine WBC 10-25 SEEN, Ur Squamous Epith Cells 5-10 SEEN, Ur Transition Epith Cell 0-5 SEEN, Amorphous Sediment 3+, Urine Bacteria 1+, Urine Mucus 0 SEEN 11/22/24 16:00: Lactic Acid 1.3 11/23/24 06:42: WBC 17.5 H, RBC 4.88, Hgb 14.7, Hct 42.8, MCV 87.7, MCH 30.1, MCHC 34.3, RDW Std Deviation 44.7 H, RDW Coeff of Matilde 14.0, Plt Count 193, MPV 9.6, Immature Gran % (Auto) 1.200 H, Neut % (Auto) 78.3 H, Lymph % (Auto) 9.1 L, [place] % (Auto) 10.6 H, Eos % (Auto) 0.4, Baso % (Auto) 0.4, Absolute Neuts (auto) 13.7 H, Absolute Lymphs (auto) 1.60, Nucleated RBC % 0, Diff Path Review December, Sodium 133, Potassium 4.1, Chloride 99, Carbon Dioxide 18.4 L, Anion Gap 15, BUN 24 H, Creatinine 1.85 H, Estim Creat Clear Calc 53.25, Est GFR (MDRD) Non-Af 40 L, BUN/Creatinine Ratio 13.0, Glucose 112 H, Calcium 8.2, Total Bilirubin 0.68, AST 567 H, ALT 39, Alkaline Phosphatase 43, Total Protein 6.5, Albumin 3.4, Globulin 3.0, Albumin/Globulin Ratio 1.1 Micro: Microbiology 11/23/24 01:45 Mucosa - Nasopharyngeal Respiratory Panel (PCR) - Final 11/23/24 02:00 Nasal Secretion SARS-CoV-2 Antigen (Rapid) - Final Imaging Radiology Impression Abdomen/Pelvis CT 11/22/24 12:01 IMPRESSION: 1. Lobulated heterogeneously enhancing lesion of the left kidney measuring up to 16.6 cm. Associated moderate hydronephrosis. This is concerning for renal cell carcinoma with obstruction. 2. Hepatomegaly with fatty infiltration. 3. Right nephrolithiasis without hydronephrosis. 4. Fecal retention in the colon consistent with constipation. Findings were discussed with Dr. Pierre by phone on 11/22/2024 at 1315 hours. Reading Location: [facility]
[2024-11-23] MEDS: Ceftriaxone 1 GM/50 ML BAG IV (09:47)
--- NOTE | 2024-11-23 10:05 | NURSING ---
CPS called to place some o2 bleed onto his own cpap
[2024-11-23 12:58] LABS: Magnesium 1.9 mg/dL (1.5-2.2)
[2024-11-23 13:12] LABS: Phosphorus 3.1 mg/dL (2.7-4.5)
[2024-11-23] MEDS: 0.9% Saline Lock 10 ML Syringe IV ×2 (14:10→16:05)
[2024-11-23] MEDS: Ondansetron 4 MG/2 ML Vial IV (14:10)
[2024-11-23] MEDS: Morphine 2 MG/ML Syringe IV (14:16)
[2024-11-23] MEDS: Bisacodyl 10 MG Suppository RC (16:04)
[2024-11-23] MEDS: proCHLORPERazine 10 MG/2 ML Vial 5 MG IV (16:04)
[2024-11-23] MEDS: 0.9% Normal Saline (1000mL) 1,000 ML 100 ML IV (16:52)
[2024-11-23] MEDS: Polyethylene Glycol 3350 17 GM PACKET PO ×2 (16:56→21:02)
[2024-11-24] VITALS (8 sets, daily range): BP systolic 127–157; BP diastolic 82–92; PULSE 77–89; RESP 16–18; TEMP 36.9–37.2; O2SAT 94–100
[2024-11-24] MEDS: 0.9% Normal Saline (1000mL) 1,000 ML 100 ML IV ×3 (03:00→23:17)
[2024-11-24 07:19] LABS: Absolute Lymphocyte Count 1.08 X10^3/uL (0.83-4.51); Absolute Neutrophil Count 10.3 X10^3/uL (2.0-7.7); Basophil# 0.02 X10^3/uL; Basophil% 0.2 % (0-1); Hematocrit 38.1 % (40-54); Hemoglobin 13.2 g/dL (13.0-16.5); Lymphocyte # 1.08 X10^3/ul (0.83-4.51); Lymphocyte % 8.3 % (19-41); Mean Corp Hgb Conc 34.6 g/dL (32-36); Mean Corpuscular Volume 86.6 fL (80-94); Monocyte# 1.48 X10^3/uL; Monocyte% 11.3 % (0-10); NRBC Flagged by Analyzer 0 % (0-5); Neutrophil % 78.9 % (47-70); POSITIVE MORPHOLOGY YES; Platelet Count 196 K/mm3 (150-450); RBC Distribution Width CV 13.7 % (11.6-14.6); White Blood Count 13.1 K/mm3 (4.4-11.0)
[2024-11-24 07:24] LABS: Differential Indicated SCAN CRITERIA MET
--- NOTE | 2024-11-24 07:29 | PCM.CONS.B ---
Consult Date of Consult: 11/24/24 Reason for Consult 54-year-old male with very large mass in the left kidney, his white blood count is better this morning his fevers have resolved not having flank pain think we will get a hold off and try to place a stent it actually may be very difficult with a large mass this is only when to do the stent if his white count was continue to rise and his fevers did not get better. Will plan for outpatient nephrectomy once he is optimized once his infection is cleared and his shortness of breath is resolved later on but I will hold off on the procedure this morning.
[2024-11-24 07:40] LABS: ALB/GLOB Ratio 0.9 RATIO (0.9-2.4); AST(SGOT) 314 U/L (<=37); Alanine Aminotransfer ALT/SGPT 34 U/L (<=46); Alkaline Phosphatase 46 U/L (40-129); Anion Gap 14 (5-15); BUN 29 mg/dL (4-19); BUN/Creat Ratio 17.7 RATIO (10-20); Calcium,Total 7.8 mg/dL (7.6-11.0); Carbon Dioxide 16.4 mmol/L (21.0-32.0); Chloride 102 mmol/L (98-108); Creatinine, Serum 1.65 mg/dL (0.70-1.20); EST Glomerular Filtration Rate 46 (>60); Estimated Creatinine Clearance 59.74 ml/min (50-250); Globulin 3.3 g/dL (2.2-4.2); Glucose 126 mg/dL (70-99); Potassium 3.9 mmol/L (3.3-5.1); Protein, Total 6.3 g/dL (5.9-8.4); Sodium Level 132 mmol/L (133-145); Total Bilirubin 0.45 mg/dL (0.00-1.30)
[2024-11-24] MEDS: Isosorbide Mononitrate 60 MG Tablet PO (08:36)
[2024-11-24] MEDS: Aspirin E.C. 81 MG Tablet PO (08:36)
[2024-11-24] MEDS: Carvedilol 3.125 MG TABLET PO ×2 (08:36→16:09)
[2024-11-24] MEDS: Polyethylene Glycol 3350 17 GM PACKET PO ×2 (08:37→20:36)
[2024-11-24] MEDS: Senna/Docusate Sodium 1 Tablet 2 TABLET PO ×2 (08:37→20:36)
[2024-11-24] MEDS: Ceftriaxone 1 GM/50 ML BAG IV (09:16)
--- NOTE | 2024-11-24 10:12 | NURSING ---
downtime documentation 11/24/24 12am until 7am
--- NOTE | 2024-11-24 10:20 | PN.HOSP_ITS ---
Subjective Subjective His numbers are improving but he says he does not feel as well as he did yesterday. Will continue with his treatment for constipation Objective Data Objective Data Vital Signs: Vital Signs Temp Pulse Resp BP Pulse Ox O2 Del Method O2 Flow Rate 98.4 F 89 16 146/82 H 94 Room Air 2 11/24/24 08:30 11/24/24 09:27 11/24/24 08:30 11/24/24 08:30 11/24/24 08:30 11/24/24 08:30 11/24/24 08:30 Oxygen Flow Rate (L/min) 2 Oxygen Delivery Method Room Air Weight: 265 lb 11.2 oz Body Mass Index (BMI) 37.0 Intake & Output: Intake and Output for Last 24 Hours 11/23/24 11/24/24 11/25/24 03:59 03:59 03:59 Intake Total 2260 / 2260 2170.00 / 2170.00 676.67 / 676.67 Output Total 700 / 700 250 / 250 900 / 900 Balance 1560 / 1560 1920.00 / 1920.00 -223.33 / -223.33 Lab / Micro Data 11/24/24 05:35 11/24/24 05:35 Labs: Laboratory Results - last 24 hr 11/23/24 06:42: Phosphorus 3.1, Magnesium 1.9 11/24/24 05:35: WBC 13.1 H, RBC 4.40 L, Hgb 13.2, Hct 38.1 L, MCV 86.6, MCH 30.0, MCHC 34.6, RDW Std Deviation 44.0 H, RDW Coeff of Matilde 13.7, Plt Count 196, MPV 10.0, Immature Gran % (Auto) 1.300 H, Neut % (Auto) 78.9 H, Lymph % (Auto) 8.3 L, [place] % (Auto) 11.3 H, Eos % (Auto) 0.0, Baso % (Auto) 0.2, Absolute Neuts (auto) 10.3 H, Absolute Lymphs (auto) 1.08, Nucleated RBC % 0, Sodium 132 L, Potassium 3.9, Chloride 102, Carbon Dioxide 16.4 L, Anion Gap 14, BUN 29 H, C reatinine 1.65 H, Estim Creat Clear Calc 59.74, Est GFR (MDRD) Non-Af 46 L, BUN/Creatinine Ratio 17.7, Glucose 126 H, Calcium 7.8, Total Bilirubin 0.45, AST 314 H, ALT 34, Alkaline Phosphatase 46, Total Protein 6.3, Albumin 3.0 L, Globulin 3.3, Albumin/Globulin Ratio 0.9 Micro: Microbiology 11/22/24 12:26 Urine, Clean Catch Urine Culture - Preliminary Culture exhibits no growth. 11/23/24 01:45 Mucosa - Nasopharyngeal Respiratory Panel (PCR) - Final 11/23/24 02:00 Nasal Secretion SARS-CoV-2 Antigen (Rapid) - Final Physical Exam Narrative General: Alert, Oriented x3, Cooperative, No apparent distress HEENT: Atraumatic, PERRLA, EOMI, Normocephalic Oral: Moist Mucosa Neck: Supple, No JVD Lungs: Diminished, Normal air movement, No rhonchi, No wheeze, No rales Cardiovascular: Regular rate, Regular Rhythm, Normal S1, Normal S2, No murmurs Abdomen: Soft, Non Tender, Non-Distended, No Hepato-splenomegaly Extremities: No edema, Capillary Refill Less than 3 Seconds Skin: No rashes, No breakdown Musculoskeletal: No Tenderness to Palpation of Joints or Extremities Neurological: No focal neurological deficits, Motor Exam 5/5 strength throughout, Sensory exam intact to light touch and pain Psych/Mental Status: Normal affect, appropriate Assessment & Plan Assessment/Plan (1) Left renal mass: (2) Hematuria: (3) UTI (urinary tract infection): (4) Hydronephrosis: PLAN: Plan 1. Left renal mass with hydronephrosis and UTI/KATHIA versus CKD ? Appreciate urology's assistance ? Continue with antibiotics ? Continue with IV fluids ? Cultures are pending ?White count is improving therefore the stent was canceled and he can likely follow-up as an outpatient for left nephrectomy ? Renal function increased today, unclear what his baseline is continue to monitor 2. Essential HTN/HLD/CAD status post stents ? Continue with his home blood pressure medications ? Blood pressure stable ? Will monitor and make adjustments as necessary ? Continue with aspirin hold Plavix ? Given renal function, will hold losartan 3. Constipation ? Continue with suppositories and MiraLAX ? Fleet enema is available ? May need to proceed to mag citrate this afternoon if he has continued discomfort DVT: SCDs Charges/Coding Visit Charges Inpatient E&M: 97835 Subs Hosp L2
[2024-11-24] MEDS: Magnesium Citrate 300 ML 150 ML PO ×2 (13:46→16:09)
[2024-11-24] MEDS: Acetaminophen 325 MG Tablet 650 MG PO (14:30)
[2024-11-25] VITALS (8 sets, daily range): BP systolic 135–150; BP diastolic 72–83; PULSE 71–81; RESP 18–22; TEMP 36.6–37.3; O2SAT 96–100
[2024-11-25 07:23] LABS: Absolute Lymphocyte Count 1.15 X10^3/uL (0.83-4.51); Absolute Neutrophil Count 9.1 X10^3/uL (2.0-7.7); Basophil# 0.04 X10^3/uL; Basophil% 0.3 % (0-1); Eosinophil# 0.02 X10^3/uL; Eosinophils% 0.2 % (0-5); Hematocrit 34.7 % (40-54); Hemoglobin 12.1 g/dL (13.0-16.5); Lymphocyte # 1.15 X10^3/ul (0.83-4.51); Mean Corp Hgb Conc 34.9 g/dL (32-36); Mean Corpuscular Hgb 29.7 pg (27.0-32.0); Mean Corpuscular Volume 85.3 fL (80-94); Monocyte# 1.09 X10^3/uL; Monocyte% 9.5 % (0-10); NRBC Flagged by Analyzer 0 % (0-5); Neutrophil # 9.14 X10^3/uL (2.7-7.7); Neutrophil % 79.3 % (47-70); POSITIVE MORPHOLOGY YES; Platelet Count 227 K/mm3 (150-450); RBC Distribution Width CV 13.8 % (11.6-14.6); RBC Distribution Width SD 43.1 fl (35.1-43.9); Red Blood Count 4.07 M/mm3 (4.6-6.2); White Blood Count 11.5 K/mm3 (4.4-11.0)
[2024-11-25 07:31] LABS: Differential Indicated SCAN CRITERIA MET
[2024-11-25 07:51] LABS: Anion Gap 11 (5-15); BUN 24 mg/dL (4-19); BUN/Creat Ratio 19.3 RATIO (10-20); Calcium,Total 7.5 mg/dL (7.6-11.0); Carbon Dioxide 16.7 mmol/L (21.0-32.0); Chloride 104 mmol/L (98-108); Creatinine, Serum 1.24 mg/dL (0.70-1.20); EST Glomerular Filtration Rate 65 (>60); Glucose 111 mg/dL (70-99); Potassium 3.6 mmol/L (3.3-5.1); Sodium Level 132 mmol/L (133-145)
[2024-11-25] MEDS: 0.9% Normal Saline (1000mL) 1,000 ML 100 ML IV ×2 (09:12→20:51)
[2024-11-25] MEDS: Carvedilol 3.125 MG TABLET PO ×2 (09:12→17:39)
[2024-11-25] MEDS: Acetaminophen 325 MG Tablet 650 MG PO ×2 (09:13→17:39)
[2024-11-25] MEDS: Isosorbide Mononitrate 60 MG Tablet PO (10:45)
[2024-11-25] MEDS: Ceftriaxone 1 GM/50 ML BAG IV (10:47)
[2024-11-25] MEDS: Senna/Docusate Sodium 1 Tablet 2 TABLET PO (10:47)
[2024-11-25] MEDS: Polyethylene Glycol 3350 17 GM PACKET PO (10:47)
[2024-11-25] MEDS: Fleet Enema 133 ML RC (11:48)
[2024-11-25] MEDS: Magnesium Citrate 300 ML 150 ML PO (11:48)
[2024-11-25 12:38] LABS: Hematocrit 36.5 % (40-54); Hemoglobin 12.6 g/dL (13.0-16.5); Mean Corp Hgb Conc 34.5 g/dL (32-36); Mean Corpuscular Hgb 29.5 pg (27.0-32.0); Mean Corpuscular Volume 85.5 fL (80-94); Mean Platelet Vol. 9.7 fl (6.2-12.0); Platelet Count 229 K/mm3 (150-450); RBC Distribution Width SD 43.7 fl (35.1-43.9); Red Blood Count 4.27 M/mm3 (4.6-6.2); White Blood Count 12.1 K/mm3 (4.4-11.0)
--- NOTE | 2024-11-25 15:57 | CHAPLAIN ---
Type of Pastoral Visit _x__ Initial Visit ___ Follow-up Visit ___ On-call Visit ___ General Patient Visit ___ Spiritual Assessment ___ Family Conference ___ Bereavement ___ Rapid Response ___ Code Blue ___ Other (describe below) Pastoral Care Referral From _x__ Patient ___ Family ___ Nurse ___ Physician ___ Tank Car Mechanic ___ Cartography Teacher ___ Other (describe below) Sacrament/Intervention _x__ Active listening ___ Anointing ___ Latter Day ___ Bereavement ___ Communion _x__ Yasmin exploration ___ _x__ Life review _x__ Prayer ___ Reconciliation ___ Sacrament of Sick _x__ Supportive presence ___ Wedding ___ Other (describe below) Pastoral Comments patient was trying to sleep but welcomed this bellman for purpose of spiritual care; 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
--- NOTE | 2024-11-25 17:19 | PCM.PN.HOSP ---
Reason for Visit Reason for Visit: Diagnoses Dehydration (11/22/24) Unspecified hydronephrosis (11/22/24) Other specified disorders of kidney and ureter (11/22/24) Urinary tract infection, site not specified (11/22/24) Shortness of breath (11/22/24) Hematuria, unspecified (11/22/24) Other general symptoms and signs (11/22/24) Subjective Subjective Saw patient at bedside this morning, present. Patient continues to have significant lower abdominal pain with distention likely due to constipation. He has started to have liquidy stool output but has also had bright red blood in the stool with multiple bowel movements. Has not had any solid stool yet despite being given several doses of magnesium citrate and a suppository. He was agreeable to trying an enema today. Hemoglobin has slightly down trended during this hospitalization. Discussed with Dr. Gilliam and will prep patient for colonoscopy tonight with plan for colonoscopy tomorrow. Objective Data Objective Data Vital Signs: Vital Signs Temp Pulse Resp BP Pulse Ox O2 Del Method O2 Flow Rate 97.8 F 72 22 H 150/83 H 99 Room Air 2 11/25/24 13:49 11/25/24 13:49 11/25/24 13:49 11/25/24 13:49 11/25/24 13:49 11/25/24 13:49 11/24/24 08:30 Oxygen Flow Rate (L/min) 2 Oxygen Delivery Method Room Air Weight: 120.519 kg Body Mass Index (BMI) 37.0 Intake & Output: Intake and Output for Last 24 Hours 11/23/24 11/24/24 11/25/24 23:59 23:59 23:59 Intake Total 1370.00 / 1370.00 3146.67 / 3146.67 1591.67 / 1591.67 Output Total 250 / 250 900 / 900 Balance 1120.00 / 1120.00 2246.67 / 2246.67 1591.67 / 1591.67 Lab / Micro Data 11/25/24 12:26 11/25/24 07:00 Labs: Laboratory Results - last 24 hr 11/25/24 07:00: WBC 11.5 H, RBC 4.07 L, Hgb 12.1 L, Hct 34.7 L, MCV 85.3, MCH 29.7, MCHC 34.9, RDW Std Deviation 43.1, RDW Coeff of Matilde 13.8, Plt Count 227, MPV 10.0, Immature Gran % (Auto) 0.700, Neut % (Auto) 79.3 H, Lymph % (Auto) 10.0 L, [place] % (Auto) 9.5, Eos % (Auto) 0.2, Baso % (Auto) 0.3, Absolute Neuts (auto) 9.1 H, Absolute Lymphs (auto) 1.15, Nucleated RBC % 0, Sodium 132 L, Potassium 3.6, Chloride 104, Carbon Dioxide 16.7 L, Anion Gap 11, BUN 24 H, Creatinine 1.24 H, Estim Creat Clear Calc 79.50, Est GFR (MDRD) Non-Af 65, BUN/Creatinine Ratio 19.3, Glucose 111 H, Calcium 7.5 L 11/25/24 12:26: WBC 12.1 H, RBC 4.27 L, Hgb 12.6 L, Hct 36.5 L, MCV 85.5, MCH 29.5, MCHC 34.5, RDW Std Deviation 43.7, RDW Coeff of Matilde 14.0, Plt Count 229, MPV 9.7 Micro: Microbiology 11/22/24 18:00 Blood Culture (Wb) - Left Hand Blood Culture - Preliminary No growth in 48 hours. 11/22/24 16:00 Blood Culture (Wb) - Anticubital Left Blood Culture - Preliminary No growth in 48 hours. 11/22/24 12:26 Urine, Clean Catch Urine Culture - Final Mixed Gram Positive Organisms 11/23/24 01:45 Mucosa - Nasopharyngeal Respiratory Panel (PCR) - Final 11/23/24 02:00 Nasal Secretion SARS-CoV-2 Antigen (Rapid) - Final Physical Exam Const alert, oriented x3 and no apparent distress Constitutional Narrative: Upper middle-aged male, class II obesity, mildly fatigued appearing, mildly uncomfortable appearing while laying back in bed due to ongoing abdominal distention, otherwise conversing normally. General Appearance: cooperative HEENT normocephalic, head/scalp atraumatic, hearing grossly normal bilaterally, nasal mucous membranes and turbinates normal and moist oral mucous membranes Eyes PERRL, EOMs intact bilaterally and conjunctivae normal Neck full ROM Chest inspection of chest normal Resp normal respiratory effort, normal air movement, no use of accessory muscles and clear to auscultation bilaterally Cardio regular rate, regular rhythm, no murmurs and peripheral pulses 2+ throughout GI GI Narrative: Abdomen mildly tender to palpation in bilateral lower quadrants and somewhat distended and hard. Hypoactive bowel sounds noted. No guarding or rebound tenderness noted. Back/Spine normal ROM Extremity normal to inspection, full ROM and no pedal edema Skin no rashes or lesions noted Psych mental status grossly normal Assessment & Plan Assessment/Plan (1) Left renal mass: PLAN: Plan Patient is a 64-year-old male who presented to [facility] ED on 11/22/2024 with flulike symptoms and dark urine. 1. Large left renal mass with hydronephrosis and concern for UTI ? Urology followed. CT abdomen pelvis on admit showed a lobulated heterogenously enhancing lesions in the left kidney measuring up to 16.6 m with associated moderate hydronephrosis concerning for renal cell carcinoma with obstruction. UA mildly infectious appearing but urine culture with no growth. Initial plan was for left ureteral stent placement but given his clinical improvement, urology noted that it would be difficult to place stents given the large mass so we will plan for outpatient nephrectomy once infection is cleared. Will complete 5-day course of antibiotics total. 2. Mild KATHIA, improving ? Creatinine 1.59 on admit, peak of 1.85 on 11/23. Now improving, most recent creatinine 1.24 on 11/25. Baseline unknown. Patient with good urine output at this time, suspect he may be close to baseline. Continue to monitor BMP daily. 3. Bright red blood per rectum with severe constipation ? GI consulted. Patient with multiple episodes of bright red blood in the stool on the evening of 11/24 and morning of 11/25. CT abdomen pelvis notably showed fecal retention in the colon consistent with constipation. Patient denies any significant blood in the stool in the past. No pain with defecation at this time. Has never had a colonoscopy done. Hemoglobin has down trended from 15.1 on admit to 12.1 on 11/25. Will prep patient for colonoscopy tonight and plan for colonoscopy tomorrow. Continue to monitor CBC daily. 4. History of CAD with stenting, hypertension, hyperlipidemia ? Continue home Coreg, Imdur and aspirin. Holding home Plavix, losartan and gemfibrozil for now. 5. Class II obesity ? BMI 37 on admit. Complicates hospital course, care and prognosis. DVT prophylaxis: SCDs CODE STATUS: Full code, verified Expected disposition: Home, 1 to 2 days Total clinical time spent by myself addressing the patient's medical issues, reviewing all the data, and collaborating with patient's care team: 35 minutes. Charges/Coding Visit Charges Inpatient E&M: 39180 Subs Hosp L2
[2024-11-25] MEDS: Bisacodyl 5 MG Tablet 20 MG PO (17:39)
[2024-11-25] MEDS: Polyethylene Glycol 3350 BOWEL PREP PO (18:45)
--- NOTE | 2024-11-25 19:26 | EX.PCM.CON.G ---
HPI Consult Data Date of Consult: 11/25/24 HPI Narrative HPI Narrative: CLINTON MONAHAN, is a 64-year-old male with history of sleep apnea, hypertension, coronary artery disease with history of right stent placement presented to [facility] ED 11/22/2024 with multiple complaints. He reports he has been sick for about 3 weeks with dry cough, sinus congestion and flulike symptoms. He traveled to [place] and came back last week and has multiple sick contacts. Additionally patient started having blood in his urine last night and today with 3 days of associated nausea and vomiting. Also dry cough for 3 weeks and some heartburn, mild shortness of breath but no chest pain. In the ED patient initially afebrile however developed a temperature of 103.2 otherwise vitally stable, CMP demonstrated sodium of 132 with a bicarb of 16, anion gap of 18 and creatinine of 1.59, AST 31 with ALT of 49. But no previous values or baselines available. White blood cell count of 16 and patient UA with occult blood, leuk esterase, 1+ bacteria. CT of the abdomen obtained which showed a lobulated heterogenously enhancing lesion of the left kidney measuring up to 16.6 cm and moderate hydronephrosis with concern for renal cell carcinoma with obstruction. Urology the patient has been recommended to discontinue antibiotics since his white blood cell count is improving and he can likely follow-up as an outpatient for left nephrectomy. I was asked to see him for history of abdominal pain and constipation. He is prepping for colonoscopy. [facility]LY [facility] Medical History Anxiety Depression Non-smoker CPAP (continuous positive airway pressure) dependence Chest pain Sleep apnea Sleep apnea High triglycerides Hypertension Coronary artery disease Home Medications ?Medication ?Instructions ?Recorded ?Last Taken ?Type aspirin 81 mg tablet,delayed 81 mg PO DAILY 11/22/24 Unknown History release (Adult Aspirin Regimen) carvedilol 6.25 mg tablet 6.25 mg PO BID 11/22/24 Unknown History clopidogrel 75 mg tablet 75 mg PO DAILY 11/22/24 Unknown History gemfibrozil 600 mg tablet 600 mg PO BID 11/22/24 Unknown History isosorbide mononitrate 60 mg 60 mg PO DAILY 11/22/24 Unknown History tablet,extended release 24 hr losartan 25 mg tablet 25 mg PO DAILY 11/22/24 Unknown History multivitamin (Daily Multi-Vitamin 1 tab PO DAILY 11/22/24 Unknown History tablet) vitamin B complex 1 tab PO DAILY 11/22/24 Unknown History vitamins A,C,Z-yrxn-jhqdzm 2,148 2 tab PO BID 11/22/24 Unknown History mcg-113 mg-45 mg-17.4 mg tablet (Eye Multivitamin) Allergy/AdvReac Type Severity Reaction Status Date / Time No Known Allergies Allergy Verified 11/22/24 10:15 Surgical History History of coronary artery stent placement Status post placement of stent in right coronary artery Social History Smoking Status: Never smoker ROS Constitutional Constitutional: Denies fatigue, fever(s), poor appetite, weight gain or weight loss Gastrointestinal Gastrointestinal: Denies belching, bloating, change in bowel habits, change in stool character, chewing difficulty, coffee ground emesis, constipation, cramping, diarrhea, dyspepsia, dysphagia, early satiety, excessive flatus, fecal incontinence, heartburn, hematemesis, hematochezia, hemorrhoids, loose stools, melena, nausea, odynophagia, rectal bleeding, tenesmus, vomiting or weight changes Physical Exam Const alert, oriented x3 and no apparent distress General Appearance: cooperative HEENT normocephalic, head/scalp atraumatic, hearing grossly normal bilaterally, nasal mucous membranes and turbinates normal and moist oral mucous membranes Eyes PERRL, EOMs intact bilaterally and conjunctivae normal Neck full ROM Chest inspection of chest normal Resp normal respiratory effort, normal air movement, no use of accessory muscles and clear to auscultation bilaterally Cardio regular rate, regular rhythm, no murmurs and peripheral pulses 2+ throughout GI GI Narrative: Abdomen mildly tender to palpation in bilateral lower quadrants and somewhat distended and hard. Hypoactive bowel sounds noted. No guarding or rebound tenderness noted. Back/Spine normal ROM Extremity normal to inspection, full ROM and no pedal edema Skin no rashes or lesions noted Psych mental status grossly normal Lab / Micro Data 11/25/24 12:26 11/25/24 07:00 Labs: Laboratory Results - last 24 hr 11/25/24 07:00: WBC 11.5 H, RBC 4.07 L, Hgb 12.1 L, Hct 34.7 L, MCV 85.3, MCH 29.7, MCHC 34.9, RDW Std Deviation 43.1, RDW Coeff of Matilde 13.8, Plt Count 227, MPV 10.0, Immature Gran % (Auto) 0.700, Neut % (Auto) 79.3 H, Lymph % (Auto) 10.0 L, [place] % (Auto) 9.5, Eos % (Auto) 0.2, Baso % (Auto) 0.3, Absolute Neuts (auto) 9.1 H, Absolute Lymphs (auto) 1.15, Nucleated RBC % 0, Sodium 132 L, Potassium 3.6, Chloride 104, Carbon Dioxide 16.7 L, Anion Gap 11, BUN 24 H, Creatinine 1.24 H, Estim Creat Clear Calc 79.50, Est GFR (MDRD) Non-Af 65, BUN/Creatinine Ratio 19.3, Glucose 111 H, Calcium 7.5 L 11/25/24 12:26: WBC 12.1 H, RBC 4.27 L, Hgb 12.6 L, Hct 36.5 L, MCV 85.5, MCH 29.5, MCHC 34.5, RDW Std Deviation 43.7, RDW Coeff of Matilde 14.0, Plt Count 229, MPV 9.7 Micro: Microbiology 11/22/24 18:00 Blood Culture (Wb) - Left Hand Blood Culture - Preliminary No growth in 48 hours. 11/22/24 16:00 Blood Culture (Wb) - Anticubital Left Blood Culture - Preliminary No growth in 48 hours. 11/22/24 12:26 Urine, Clean Catch Urine Culture - Final Mixed Gram Positive Organisms Assessment & Plan Assessment/Plan (1) Left renal mass: PLAN: Plan Patient is a 64-year-old male who presented to [facility] ED on 11/22/2024 with flulike symptoms and dark urine. He was diagnosed with large left renal mass with hydronephrosis and will likely have outpatient nephrectomy. He has also been experiencing bright red blood per rectum with severe constipation. The previous CT scanof the abdomen pelvis notably showed fecal retention in the colon consistent with constipation. Patient denies any significant blood in the stool in the past. He has never had a colonoscopy done. Hemoglobin has down trended from 15.1 on admit to 12.1. Patient is on her normal prep tonight and plan for colonoscopy tomorrow. Charges/Coding Visit Charges Inpatient E&M: 85073 Init Hosp L3
[2024-11-25] MEDS: Metoclopramide 10 MG/2 ML Vial IV (23:44)
[2024-11-25] MEDS: 0.9% Saline Lock 10 ML Syringe IV (23:44)
[2024-11-26] VITALS (13 sets, daily range): BP systolic 126–148; BP diastolic 57–93; PULSE 70–83; RESP 15–24; TEMP 36.6–37.5; O2SAT 95–100
[2024-11-26] MEDS: Metoclopramide 10 MG/2 ML Vial IV ×3 (06:35→23:10)
[2024-11-26] MEDS: 0.9% Normal Saline (1000mL) 1,000 ML 100 ML IV ×2 (06:35→20:52)
[2024-11-26 07:23] LABS: Hematocrit 33.4 % (40-54); Hemoglobin 11.5 g/dL (13.0-16.5); Mean Corp Hgb Conc 34.4 g/dL (32-36); Mean Corpuscular Hgb 29.4 pg (27.0-32.0); Mean Corpuscular Volume 85.4 fL (80-94); Mean Platelet Vol. 9.8 fl (6.2-12.0); Platelet Count 285 K/mm3 (150-450); RBC Distribution Width CV 14.2 % (11.6-14.6); RBC Distribution Width SD 44.1 fl (35.1-43.9); Red Blood Count 3.91 M/mm3 (4.6-6.2); White Blood Count 11.7 K/mm3 (4.4-11.0)
[2024-11-26 08:04] LABS: Anion Gap 11 (5-15); BUN 18 mg/dL (4-19); BUN/Creat Ratio 17.4 RATIO (10-20); Calcium,Total 7.5 mg/dL (7.6-11.0); Carbon Dioxide 16.2 mmol/L (21.0-32.0); Chloride 106 mmol/L (98-108); Creatinine, Serum 1.04 mg/dL (0.70-1.20); EST Glomerular Filtration Rate 80 (>60); Estimated Creatinine Clearance 94.78 ml/min (50-250); Glucose 118 mg/dL (70-99); Potassium 3.4 mmol/L (3.3-5.1); Sodium Level 133 mmol/L (133-145)
--- NOTE | 2024-11-26 10:43 | PN.HOSP_ITS ---
Reason for Visit Reason for Visit: Diagnoses Dehydration (11/22/24) Unspecified hydronephrosis (11/22/24) Other specified disorders of kidney and ureter (11/22/24) Urinary tract infection, site not specified (11/22/24) Shortness of breath (11/22/24) Hematuria, unspecified (11/22/24) Other general symptoms and signs (11/22/24) Subjective Subjective Saw patient at bedside this morning. Patient was resting comfortably in bed, conversing normally, in no acute distress. Noted that his stools are clear at this point. Plan is for colonoscopy this afternoon at 4 PM. Patient notes that his abdominal pain is mildly improved from yesterday. Has not had any further blood in his bowel movements. No other acute concerns at this time. Objective Data Objective Data Vital Signs: Vital Signs Temp Pulse Resp BP Pulse Ox O2 Del Method O2 Flow Rate 98.7 F 71 16 133/71 H 95 Room Air 2 11/26/24 08:27 11/26/24 08:27 11/26/24 08:27 11/26/24 08:27 11/26/24 08:27 11/26/24 08:27 11/24/24 08:30 Oxygen Flow Rate (L/min) 2 Oxygen Delivery Method Room Air Weight: 120.519 kg Body Mass Index (BMI) 37.0 Intake & Output: Intake and Output for Last 24 Hours 11/24/24 11/25/24 11/26/24 23:59 23:59 23:59 Intake Total 3146.67 / 3146.67 3141.67 / 3141.67 3973.33 / 3973.33 Output Total 900 / 900 Balance 2246.67 / 2246.67 3141.67 / 3141.67 3973.33 / 3973.33 Lab / Micro Data 11/26/24 06:38 11/26/24 06:38 Labs: Laboratory Results - last 24 hr 11/25/24 12:26: WBC 12.1 H, RBC 4.27 L, Hgb 12.6 L, Hct 36.5 L, MCV 85.5, MCH 29.5, MCHC 34.5, RDW Std Deviation 43.7, RDW Coeff of Matilde 14.0, Plt Count 229, MPV 9.7 11/26/24 06:38: WBC 11.7 H, RBC 3.91 L, Hgb 11.5 L, Hct 33.4 L, MCV 85.4, MCH 29.4, MCHC 34.4, RDW Std Deviation 44.1 H, RDW Coeff of Matilde 14.2, Plt Count 285, MPV 9.8, Sodium 133, Potassium 3.4, Chloride 106, Carbon Dioxide 16.2 L, Anion Gap 11, BUN 18, Creatinine 1.04, Estim Creat Clear Calc 94.78, Est GFR (MDRD) Non-Af 80, BUN/Creatinine Ratio 17.4, Glucose 118 H, Calcium 7.5 L Micro: Microbiology 11/22/24 18:00 Blood Culture (Wb) - Left Hand Blood Culture - Preliminary No growth in 48 hours. 11/22/24 16:00 Blood Culture (Wb) - Anticubital Left Blood Culture - Preliminary No growth in 48 hours. 11/22/24 12:26 Urine, Clean Catch Urine Culture - Final Mixed Gram Positive Organisms 11/23/24 01:45 Mucosa - Nasopharyngeal Respiratory Panel (PCR) - Final 11/23/24 02:00 Nasal Secretion SARS-CoV-2 Antigen (Rapid) - Final Physical Exam Const alert, oriented x3 and no apparent distress Constitutional Narrative: Upper middle-aged male, class II obesity, mildly fatigued appearing, otherwise laying back comfortably in bed, conversing normally, in no acute distress. General Appearance: cooperative HEENT normocephalic, head/scalp atraumatic, hearing grossly normal bilaterally, nasal mucous membranes and turbinates normal and moist oral mucous membranes Eyes PERRL, EOMs intact bilaterally and conjunctivae normal Neck full ROM Chest inspection of chest normal Resp normal respiratory effort, normal air movement, no use of accessory muscles and clear to auscultation bilaterally Cardio regular rate, regular rhythm, no murmurs and peripheral pulses 2+ throughout GI GI Narrative: Abdomen mildly tender to palpation in bilateral lower quadrants, but soft today and nondistended. Improving. Back/Spine normal ROM Extremity normal to inspection, full ROM and no pedal edema Skin no rashes or lesions noted Psych mental status grossly normal Assessment & Plan Assessment/Plan (1) Left renal mass: PLAN: Plan Patient is a 64-year-old male who presented to [facility] ED on 11/22/2024 with flulike symptoms and dark urine. 1. Large left renal mass with hydronephrosis and concern for UTI ? Urology followed. CT abdomen pelvis on admit showed a lobulated heterogenously enhancing lesions in the left kidney measuring up to 16.6 m with associated moderate hydronephrosis concerning for renal cell carcinoma with obstruction. UA mildly infectious appearing but urine culture with no growth. Initial plan was for left ureteral stent placement but given his clinical improvement, urology noted that it would be difficult to place stents given the large mass so will plan for outpatient nephrectomy once infection is cleared. Will complete 5-day course of antibiotics total. 2. Mild KATHIA, improving ? Creatinine 1.59 on admit, peak of 1.85 on 11/23. Now improving, most recent creatinine 1.04 on 11/26. Baseline unknown. Patient with good urine output at this time, suspect he may be close to baseline. Continue to monitor BMP daily. 3. Bright red blood per rectum with severe constipation ? GI following. Patient with multiple episodes of bright red blood in the stool on the evening of 11/24 and morning of 11/25. CT abdomen pelvis notably showed fecal retention in the colon consistent with constipation. Patient denies any significant blood in the stool in the past. No pain with defecation at this time. Has never had a colonoscopy done. Hemoglobin has down trended from 15.1 on admit to 12.1 on 11/25. Completed prep and plan is for colonoscopy later this afternoon, will follow-up on result. Notably did not have more blood in bowel movements while completing colonoscopy prep. Continue to monitor CBC daily. 4. History of CAD with stenting, hypertension, hyperlipidemia ? Continue home Coreg, Imdur and aspirin. Holding home Plavix, losartan and gemfibrozil for now. 5. Class II obesity ? BMI 37 on admit. Complicates hospital course, care and prognosis. DVT prophylaxis: SCDs CODE STATUS: Full code, verified Expected disposition: Home, 1 to 2 days Total clinical time spent by myself addressing the patient's medical issues, reviewing all the data, and collaborating with patient's care team: 35 minutes. Charges/Coding Visit Charges Inpatient E&M: 19583 Subs Hosp L2
[2024-11-26] MEDS: 0.9% Saline Lock 10 ML Syringe IV ×2 (13:16→20:55)
[2024-11-26] MEDS: Ceftriaxone 1 GM/50 ML BAG IV (13:37)
--- NOTE | 2024-11-26 17:15 | NURSING ---
pt left unit for procedure.
--- NOTE | 2024-11-26 18:00 | COLBX_PTH ---
PATIENT: CLINTON MONAHAN LOC: MS3 U#:[id number] AGE/SX: 64/M [place] [facility] [place]11/22/[address]: Dr. Davian Cornejo DO : 1960 BED: 1 DIS: 11/27/2024 SPEC #: [id number] RECD: 11/27/24 11:02 STATUS: FREDO REElisabet #: [id number] LAVERNE: 11/26/24 18:[address]: Jose Gilliam DEPT: SURGICAL PATHOLOGY RECD BY: Alphonse Calhoun ENTERED: 11/27/24 11:03 SP TYPE: COLON BX OTHR DR: DO Dr. Dm Rowland DO Dr. Juan Miguel Proano, MD Dr. Nicholas F Kotsonis, MD Dr. Paige Pierce, MD Christy Haagen, CERTIFIED PERSONAL CHEF-C Tissues: A - Rectum, NOS Procedures: Surgery Specimen Level IV HEADER OPERATION: Colonoscopy with biopsy PRE-OP DIAGNOSIS: Lower GI bleed TISSUE SUBMITTED: A- Rectal ulcer biopsy MICROSCOPIC DIAGNOSIS A. Rectum, Ulcer, Biopsy: - Focal active colitis with degenerative changes - see note. Note: The findings are suggestive of ischemia. The histologic differential diagnosis includes medication injury and infection. Recommend correlation with clinical and endoscopic findings. MICROSCOPIC DESCRIPTION Slides are reviewed. GROSS DESCRIPTION A. Received in formalin in a container labeled with the patient's name, date of , and rectal ulcer biopsy is a 0.4 x 0.3 x 0.2 cm fragment of quinones-pink mucosal tissue. Submitted in toto in A1. SB 11/27/2024 CPT:84610
--- NOTE | 2024-11-26 18:14 | PN_ITS ---
Progress Note Patient completed his bowel prep without any problems. His stools are clear. Physical Exam Const alert, oriented x3 and no apparent distress Constitutional Narrative: Upper middle-aged male, class II obesity, mildly fatigued appearing, otherwise laying back comfortably in bed, conversing normally, in no acute distress. General Appearance: cooperative HEENT normocephalic, head/scalp atraumatic, hearing grossly normal bilaterally, nasal mucous membranes and turbinates normal and moist oral mucous membranes Eyes PERRL, EOMs intact bilaterally and conjunctivae normal Neck full ROM Chest inspection of chest normal Resp normal respiratory effort, normal air movement, no use of accessory muscles and clear to auscultation bilaterally Cardio regular rate, regular rhythm, no murmurs and peripheral pulses 2+ throughout GI GI Narrative: Abdomen mildly tender to palpation in bilateral lower quadrants, but soft today and nondistended. Improving. Back/Spine normal ROM Extremity normal to inspection, full ROM and no pedal edema Skin no rashes or lesions noted Psych mental status grossly normal Assessment & Plan Assessment/Plan (1) Left renal mass: PLAN: Plan Patient is a 64-year-old male who presented to [facility] ED on 11/22/2024 with flulike symptoms and dark urine. He was diagnosed with large left renal mass with hydronephrosis and will likely have outpatient nephrectomy. He has also been experiencing bright red blood per rectum with severe constipation. The previous CT scanof the abdomen pelvis notably showed fecal retention in the colon consistent with constipation. Patient denies any significant blood in the stool in the past. He has never had a colonoscopy done. Hemoglobin has down trended from 15.1 on admit to 12.1. Patient is on her normal prep tonight and plan for colonoscopy tomorrow. 11/26/2024-all questions and concerns answered regarding the procedure. He was explained alternatives, risk and benefits including withstanding bleeding, infection, sepsis, perforation, need for return to . He will have an ASA of 3. Visit Charges Inpatient E&M: [id number] [facility] L[facility]
--- NOTE | 2024-11-26 18:19 | PRE.ANES_ITS ---
ASA Classification* ASA Classification ASA Classification: 3 Assessment & Plan Anesthesia* Anesthesia Assessment Anesthesia Assessment: Discussed sedation and/or anesthesia options, risks, benefits, and alternatives with patient/parents/legal guardian/POA. Questions invited. The patient/parents/legal guardian/POA seems to understand and agrees to proceed with anesthesia plan. Reviewed the physical assessment, medical history, allergy history and patient home medications list prior to surgery/procedure/anesthetic and documented any changes. Performed airway and anesthesia risk assessments. Anesthesia Type Anesthesia Type: MAC History Source History Obtained from:: Patient and Chart Anesthesia Focused Assessment* Temperature: 99.5 F Pulse Rate: 72 Blood Pressure: 148/72 Respiratory Rate: 18 Pulse Ox: 98 Oxygen Delivery Method: Room Air Oxygen Flow Rate (L/min): 2 Airway Assessment Mouth opens: >3 cm Mallampati Score: III Teeth Condition: Missing (Missing left upper molar) Neck Range of motion (ROM): Limited ROM (Somewhat decreased extension) Focused Labs Anesthesia Preop lab: CBC WBC 11.7 K/mm3 (4.4-11.0) H 11/26/24 06:38 5 RBC 3.91 M/mm3 (4.6-6.2) L 11/26/24 06:38 11/26/24 Hgb 11.5 g/dL (13.0-16.5) L 11/26/24 06:38 5 Hct 33.4 % (40-54) L 11/26/24 06:38 11/26/24 Plt Count 285 K/mm3 (150-450) 11/26/24 06:38 11/26/24 CHEMISTRY Potassium 3.4 mmol/L (3.3-5.1) 11/26/24 06:38 11/26/24 Sodium 133 mmol/L (133-145) 11/26/24 06:38 11/26/24 Magnesium 1.9 mg/dL (1.5-2.2) 11/23/24 06:42 11/23/24 Phosphorus 3.1 mg/dL (2.7-4.5) 11/23/24 06:42 11/23/24 BUN 18 mg/dL (4-19) 11/26/24 06:38 11/26/24 Creatinine 1.04 mg/dL (0.70-1.20) 11/26/24 06:38 11/26/24 Glucose 118 mg/dL (70-99) H 11/26/24 06:38 11/26/24 COAG Pre-Assessment Diagnosis/Proposed Procedure Planned Operative Procedure(s): Colonoscopy Anesthesia History Anesthesia History - data analytics analyst: Anesthesia History - data analytics analyst Hx Hospitalization Any Problems With Anesthesia No 11/25/24 21:05 Cholinesterase deficiency No 11/25/24 21:05 You/Your Family Experience No 11/25/24 21:05 fever (hyperthermia) with Relationship Recent Exposure to Contagious No 11/25/24 21:05 Disease Does patient have nerve No 11/25/24 21:05 stimulator Patient instructed to have No 11/25/24 21:05 device shut off --Does patient have Pacemaker or ICD? When Was Last Pacemaker Check QUESTION #4 FULL TEXT: You/Your Family Experience fever (hyperthermia) with Anesthesia Last Oral Intake Last Oral intake: Last Oral Intake NPO since 00:00 11/23/24 23:10 Meds taken in AM with sips of No 11/23/24 23:10 water? Meds patient instructed to take am of surgery PONV PONV - data analytics analyst: PONV - data analytics analyst Female HX of Motion Sickness HX of N/V After Surgery Non-Smoker Duration of Surgery greater than 60 minutes Number of Risk Factors PONV Score Height & Weight Height & Weight: Anesthesia: Height & Weight Height 5 ft 11 in 11/26/24 16:24 Weight: 120.519 kg 11/26/24 16:24 Body Mass Index (BMI) 37.0 11/23/24 23:10 Respiratory Assessment Respiratory Assessment - data analytics analyst: Respiratory Tract Infection Hx - data analytics analyst Hx Respiratory Tract Infection No 11/25/24 21:05 Any additional information?: Yes Hx Respiratory Tract Infection: Yes (Cough started 10 days ago. still present) STOP Sleep Apnea STOP Sleep Apnea - data analytics analyst: STOP Sleep Apnea - data analytics analyst Hx Hypertension Yes 11/23/24 14:18 Hx Sleep Apnea Yes 11/22/24 17:02 CPAP Yes 11/22/24 17:02 BIPAP No 11/22/24 17:02 Do you snore loudly (louder than talking or can be heard Do you often feel tired/ fatigued/ sleepy during daytime? Has anyone observed you stop breathing during sleep? STOP Results Positive 11/22/24 17:02 QUESTION #5 FULL TEXT : Do you snore loudly (louder than talking or can be heard through closed doors)? 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 Specify any problems Hx of Preganancy in last 3 N/A 11/22/24 17:02 Months Nurse Filling Out Transfusion FSTEINER 11/22/24 17:02 & Questions: Date: 11/22/24 11/22/24 17:02 Time: 17:04 11/22/24 17:02 Patient unable to answer at this time (ie. confused, unrespo /Reproduction History /Reproductive History - data analytics analyst: /Reproductive Hx- data analytics analyst Hx Now na 11/23/24 23:08 Gestational Age (in weeks): EDC: Hx Hx Para Hx Section SAB No 11/23/24 23:08 Active Medications Active Medications: Current Medications Generic Name Dose Route Start Last Admin Trade Name Freq PRN Reason Stop Dose Admin Acetaminophen 650 mg 11/22/24 17:14 11/25/24 17:39 Acetaminophen 325 Mg Tablet PO 650 mg Q6H PRN PRN Administration Pain 1-10 Or Fever >100.7 Al Hydroxide/Mg Hydroxide 30 ml 11/22/24 17:14 Mag Hydrox/Al Hydrox/Simeth 30 Ml Udc PO Q6H PRN PRN Gastric Burning Albuterol Sulfate 2.5 mg 11/22/24 17:14 Albuterol 2.5 Mg/3 Ml Vial.Neb. INHALATION Q2H PRN PRN SOB &/OR WHEEZING Aspirin 81 mg 11/23/24 08:00 11/26/24 07:26 Aspirin E.C. 81 Mg Tablet PO Not Given BREAKFAST NERI Bisacodyl 10 mg 11/23/24 14:22 11/23/24 16:04 Bisacodyl 10 Mg Suppository RC 10 mg DAILY PRN Administration Constipation Carvedilol 3.125 mg 11/22/24 17:14 11/26/24 07:26 Carvedilol 3.125 Mg Tablet PO Not Given BIDCM [facility] Protocol Sodium Chloride 100 mls @ 15 mls/hr 11/22/24 17:13 IV .Q6H40M PRN Saline Flush Sodium Chloride 100 mls @ 15 mls/hr 11/22/24 17:13 IV .Q6H40M PRN Additional IVPB Infusion Ceftriaxone Sodium 1 gm in 50 mls @ 100 mls/hr 11/23/24 10:00 11/26/24 14:07 Rocephin IV Infused Q24 NERI Infusion Sodium Chloride 1,000 mls @ 100 mls/hr 11/23/24 16:10 11/26/24 17:05 IV Infused .Q10H NERI Infusion Isosorbide Mononitrate 60 mg 11/23/24 10:00 11/26/24 07:26 Isosorbide Mononitrate 60 Mg Tablet PO Not Given DAILY [facility] Protocol Melatonin 3 mg 11/22/24 17:14 Melatonin 3 Mg Tablet PO QHS PRN PRN INSOMNIA Metoclopramide HCl 10 mg 11/26/24 00:00 11/26/24 13:16 Metoclopramide 10 Mg/2 Ml Vial IV 10 mg Q6 NERI Administration Morphine Sulfate 2 - 4 mg 11/22/24 17:14 11/23/24 14:16 Morphine 2 Mg/Ml Syringe IV 2 mg Q3H PRN PRN Administration Pain Score 6-10 Nutritional Formula (Lactose Free) 120 ml 11/26/24 17:00 Ensure Plus High Protein 120 Ml Liquid PO TIDCM [facility] Ondansetron HCl 4 mg 11/22/24 17:14 11/23/24 14:10 Ondansetron 4 Mg/2 Ml Vial IV 4 mg Q8H PRN PRN Administration NAUSEA/VOMITING Oxycodone HCl 5 mg 11/22/24 17:14 11/23/24 21:00 Oxycodone 5 Mg Tablet PO 5 mg Q4H PRN PRN Administration Pain Score 4-10 Polyethylene Glycol 17 gm 11/23/24 16:40 11/26/24 07:27 Polyethylene Glycol 3350 17 Gm Packet PO Not Given BID NERI Prochlorperazine Edisylate 5 mg 11/22/24 17:14 11/23/24 16:04 Prochlorperazine 10 Mg/2 Ml Vial IV 5 mg Q4H PRN PRN Administration Breakthrough Nausea/Vomiting Senna/Docusate Sodium 2 tablet 11/22/24 22:00 11/26/24 07:27 Senna/Docusate Sodium 1 Tablet PO Not Given BID NERI Sodium Biphosphate/Sodium Phosphate 133 ml 11/23/24 14:22 Fleet Enema RC X1 PRN Constipation Sodium Chloride 10 - 40 ml 11/22/24 17:13 11/26/24 13:16 0.9% Saline Lock 10 Ml Syringe IV 10 ml UD PRN Administration SALINE FLUSH PFSH Medical History Anxiety Depression Non-smoker CPAP (continuous positive airway pressure) dependence Chest pain Sleep apnea Sleep apnea High triglycerides Hypertension Coronary artery disease Home Medications ?Medication ?Instructions ?Recorded ?Last Taken ?Type aspirin 81 mg tablet,delayed 81 mg PO DAILY 11/22/24 U nknown History release (Adult Aspirin Regimen) carvedilol 6.25 mg tablet 6.25 mg PO BID 11/22/24 Unkn own History clopidogrel 75 mg tablet 75 mg PO DAILY 11/22/24 Unkn own History gemfibrozil 600 mg tablet 600 mg PO BID 11/22/24 Unkno wn History isosorbide mononitrate 60 mg 60 mg PO DAILY 11/22/24 U nknown History tablet,extended release 24 hr losartan 25 mg tablet 25 mg PO DAILY 11/22/24 Unkn own History multivitamin (Daily Multi-Vitamin 1 tab PO DAILY 11/22 Unknown History tablet) vitamin B complex 1 tab PO DAILY 11/22/24 Unkn own History vitamins A,C,T-raxl-mhmgvq 2,148 2 tab PO BID 11/22/24 Unknown History mcg-113 mg-45 mg-17.4 mg tablet (Eye Multivitamin) Allergy/AdvReac Type Severity Reaction Status Date / Time No Known Allergies Allergy Verified 11/22/24 10:15 Surgical History (Updated 11/26/24 @ 18:[address] Fan Helm MD) S/P tonsillectomy History of coronary artery stent placement Status post placement of stent in right coronary artery Social History Smoking Status: Never smoker Review of Systems (Anesthesia) ROS Narrative System reviewed and no additional complaints, except as documented.
--- NOTE | 2024-11-26 19:02 | PCM.POST.ANE ---
Anesthesia: Postop Eval I Current Vital Signs Temperature: 99.2 F Pulse Rate: 76 Blood Pressure: 136/80 Respiratory Rate: 16 Pulse Ox: 95 Oxygen Delivery Method: Room Air Assessment Airway patent: Yes Spontaneous unlabored respirations: Yes Mental status: Awake and Calm nausea: No Vomiting: No Anesthesia Complication: No Fluid Hydration Crystalloid volume administer (ml): 10 Total IV fluid infused: 10 Progress Note Anesthesia document: Postop Eval 1 completed: Yes
--- NOTE | 2024-11-26 19:05 | OP.CCLET_ITS ---
11/26/2024 Elizabeth Saldivar Re : Colonoscopy procedure for Rg Avila Dear Janna This procedure was performed on Tuesday, November 26, 2024. My impressions and recommendations are as follows: Impressions : - Diverticulosis in the recto-sigmoid colon and in the sigmoid colon. - Patchy moderate inflammation was found in the rectum secondary to colitis. Biopsied. - The examination was otherwise normal on direct and retroflexion views. Recommendations : - Return patient to [facility] care. - Resume previous diet. - Repeat colonoscopy for surveillance based on pathology results. - Continue present medications. My findings are described in the full procedure note, which is enclosed. If I can be of further assistance, please feel free to contact me at . Sincerely, Jose Gilliam, 11/26/2024 7:04:17 PM This report has been signed electronically.
--- NOTE | 2024-11-26 19:05 | OP.COLON_ITS ---
Patient Name: Rg Avila Procedure Date: 11/26/2024 6:15 PM Date of : 1960 Age: 64 Procedure: Colonoscopy Indications: Abdominal pain in the left lower quadrant, Hematochezia Providers: Jose Gilliam DO Referring MD: Dm Rudd Md Medicines: Monitored Anesthesia Care Patient Profile: This is a 64 year old male. Refer to note in patient chart for documentation of history and physical. Last Colonoscopy: 5 years ago. Complications: No immediate complications. Procedure: Pre-Anesthesia Assessment: - Prior to the procedure, a History and Physical was performed, and patient medications and allergies were reviewed. The patient is competent. The risks and benefits of the procedure and the sedation options and risks were discussed with the patient. All questions were answered and informed consent was obtained. Patient identification and proposed procedure were verified by the physician in the pre-procedure area. Mental Status Examination: alert and oriented. Airway Examination: normal oropharyngeal airway and neck mobility. Respiratory Examination: clear to auscultation. CV Examination: normal. Prophylactic Antibiotics: The patient does not require prophylactic antibiotics. Prior Anticoagulants: The patient has taken no anticoagulant or antiplatelet agents except for NSAID medication. ASA Grade Assessment: II - A patient with mild systemic disease. After reviewing the risks and benefits, the patient was deemed in satisfactory condition to undergo the procedure. The anesthesia plan was to use monitored anesthesia care (MAC). Immediately prior to administration of medications, the patient was re-assessed for adequacy to receive sedatives. The heart rate, respiratory rate, oxygen saturations, blood pressure, adequacy of pulmonary ventilation, and response to care were monitored throughout the procedure. The physical status of the patient was re-assessed after the procedure. After I obtained informed consent, the scope was passed under direct vision. Throughout the procedure, the patient's blood pressure, pulse, and oxygen saturations were monitored continuously. The colonoscope was introduced through the anus and advanced to the cecum, identified by appendiceal orifice and ileocecal valve. The colonoscopy was performed without difficulty. The patient tolerated the procedure well. The quality of the bowel preparation was adequate. The ileocecal valve, appendiceal orifice, and rectum were photographed. Scope In: 6:39:16 PM Scope Withdrawal Time 0 hours 9 minutes 46 seconds Scope Out: 6:54:28 PM Total Procedure Duration Time 0 hours 15 minutes 12 seconds Findings: The perianal and digital rectal examinations were normal. Multiple small and large-mouthed diverticula were found in the recto-sigmoid colon and sigmoid colon. Patchy moderate inflammation characterized by erosions, erythema and friability was found in the rectum. Biopsies were taken with a cold forceps for histology. Verification of patient identification for the specimen was done. Estimated blood loss was minimal. The exam was otherwise without abnormality on direct and retroflexion views. Impression: - Diverticulosis in the recto-sigmoid colon and in the sigmoid colon. - Patchy moderate inflammation was found in the rectum secondary to colitis. Biopsied. - The examination was otherwise normal on direct and retroflexion views. Recommendation: - Return patient to [facility] for ongoing care. - Resume previous diet. - Repeat colonoscopy for surveillance based on pathology results. - Continue present medications. Procedure Code(s): --- Professional --- 85823, Colonoscopy, flexible; with biopsy, single or multiple CPT copyright 2021 [employer]. All rights reserved. The codes documented in this report are preliminary and upon epoxy specialist review may be revised to meet current compliance requirements. Jose Gilliam DO 11/26/2024 7:04:17 PM This report has been signed electronically. Number of Addenda: 0 Note Initiated On: 11/26/2024 6:15 PM
--- NOTE | 2024-11-26 19:17 | PCM.POSTANE2 ---
Anesthesia Postop Eval I Sum Postop Eval Completion status Anesthesia document: Postop Eval 1 completed: Yes Anesthesia Postop Eval I Summary Anesthesia Postop Eval I Summary: Anesthesia Postop Eval I: Assessment Summary Airway patent Yes 11/26/24 19:04 Spontaneous unlabored Yes 11/26/24 19:04 respirations Mental status Awake,Calm 11/26/24 19:04 nausea No 11/26/24 19:04 Vomiting No 11/26/24 19:04 Anesthesia Postop Eval I: Fluid Summary Crystalloid volume administer 10 11/26/24 19:04 (ml) Colloids volume administered ( ml) Blood Product volume administered (ml) Total IV fluid infused 10 11/26/24 19:04 Anesthesia Postop Eval I: Summary Notes Anesthesia Complication No 11/26/24 19:04 Anesthesia Complication Comment: Post-operative progress note Anesthesia: Postop Eval II Evaluation Mental status: Awake and Calm Pain Level: 0 nausea: No Vomiting: No Complications Anesthesia Complication: No
[2024-11-26] MEDS: Carvedilol 3.125 MG TABLET PO (22:15)
[2024-11-26] MEDS: Acetaminophen 325 MG Tablet 650 MG PO (22:15)
[2024-11-26] MEDS: Senna/Docusate Sodium 1 Tablet 2 TABLET PO (22:15)
[2024-11-26] MEDS: Polyethylene Glycol 3350 17 GM PACKET PO (22:15)
[2024-11-27 03:16] VITALS: BP 150/79; PULSE 83; RESP 16; TEMP 36.7; O2SAT 99
[2024-11-27] MEDS: Metoclopramide 10 MG/2 ML Vial IV ×2 (06:33→12:32)
[2024-11-27] MEDS: 0.9% Normal Saline (1000mL) 1,000 ML 100 ML IV (06:35)
[2024-11-27 07:19] VITALS: BP 138/79; PULSE 76; RESP 18; TEMP 37.5; O2SAT 96
[2024-11-27 07:33] LABS: Hematocrit 37.4 % (40-54); Hemoglobin 12.6 g/dL (13.0-16.5); Mean Corp Hgb Conc 33.7 g/dL (32-36); Mean Corpuscular Hgb 29.4 pg (27.0-32.0); Mean Corpuscular Volume 87.2 fL (80-94); Mean Platelet Vol. 9.6 fl (6.2-12.0); Platelet Count 374 K/mm3 (150-450); RBC Distribution Width CV 14.4 % (11.6-14.6); RBC Distribution Width SD 46.5 fl (35.1-43.9); Red Blood Count 4.29 M/mm3 (4.6-6.2)
[2024-11-27 07:36] VITALS: PULSE 67
[2024-11-27 08:18] LABS: Anion Gap 12 (5-15); BUN 17 mg/dL (4-19); BUN/Creat Ratio 16.4 RATIO (10-20); Carbon Dioxide 16.5 mmol/L (21.0-32.0); Chloride 106 mmol/L (98-108); Creatinine, Serum 1.06 mg/dL (0.70-1.20); EST Glomerular Filtration Rate 78 (>60); Glucose 111 mg/dL (70-99); Potassium 3.5 mmol/L (3.3-5.1); Sodium Level 135 mmol/L (133-145)
[2024-11-27] MEDS: Isosorbide Mononitrate 60 MG Tablet PO (09:01)
[2024-11-27] MEDS: Acetaminophen 325 MG Tablet 650 MG PO (09:01)
[2024-11-27] MEDS: Aspirin E.C. 81 MG Tablet PO (09:01)
[2024-11-27] MEDS: Carvedilol 3.125 MG TABLET PO (09:01)
[2024-11-27] MEDS: Ceftriaxone 1 GM/50 ML BAG IV (10:09)
[2024-11-27 11:04] VITALS: PULSE 63
--- NOTE | 2024-11-27 11:40 | DCINST_ITS ---
Discharge Instructions Diet Discharge Diet: No restrictions DC O2, CPAP, BIPAP needs Home O2 Discharge instructions: No Dressing / Incision Discharge Activity: No Restrictions Follow Up Care Please Follow Up With: Farhat Campos MD Test Results: Test results from this visit will be discussed in further detail at your follow- up appointment, if applicable. Discharge Plan Admission Admit Date/Time: 11/22/24 16:26 Primary Reason for Your Visit: abdominal pain Attending Provider: Davian Cornejo Primary Care Provider: Elizabeth Saldivar NP Consulting Providers: Farhat Campos; Belkis Mills; Wilman Bennett; Jose Gilliam Instructions Forms: Work / School Excuse Additional Instructions / Restrictions: Please hold your Plavix until after your procedure with Dr. Campos. Continue all other home indications as normal. Please call Dr. Campos's office to ensure an appointment/surgery date has been scheduled for you. Discharge Orders/Prescriptions Prescriptions: Continued carvedilol 6.25 mg tablet 6.25 mg PO BID gemfibrozil 600 mg tablet 600 mg PO BID Eye Multivitamin 2,148 mcg-113 mg-45 mg-17.4mg tablet 2 tab PO BID Rx Instructions: administer with AM and PM meals vitamin B complex Tablet 1 tab PO DAILY isosorbide mononitrate 60 mg tablet extended release 24 hr 60 mg PO DAILY losartan 25 mg tablet 25 mg PO DAILY aspirin [Adult Aspirin Regimen] 81 mg tablet,delayed release (DR/EC) 81 mg PO DAILY multivitamin [Daily Multi-Vitamin] Tablet 1 tab PO DAILY Held clopidogrel 75 mg tablet 75 mg PO DAILY Hold Instructions: Resume on 12/23/24. Hold until after your procedure with Dr. Campos. Referrals / Follow Up: Farhat Campos MD [Med Staff - Active Staff] - Elizabeth Saldivar NP, [facility] [employer]-C [Primary Care Provider] - Disposition Disposition (needs filled in before D/C Order can be placed): Home, Self Care
--- NOTE | 2024-11-27 11:40 | PCM.DC.SUM ---
Providers Date of Admission: 11/22/24 Date of Discharge: 11/27/24 Primary Care Physician: KYMBERLY Whittaker Consultations 11/22/24 15:42 Consult: Urology Routine Consulting Provider: Farhat Campos Reason for Consult: New onset, left renal mass 16 cm EMERGENT Consult: Yes MD Notified: Yes Date Notified: 11/22/24 Time Notified: 15:42 Method of Notification: Verbal 11/22/24 17:14 Consult: Urology Routine Consulting Provider: Farhat Campos Reason for Consult: kidney mass w/ hydro EMERGENT Consult: No MD Notified: Yes Date Notified: 11/22/24 Time Notified: 16:36 Method of Notification: ED Physician Initiated 11/25/24 15:22 Consult: Gastroenterology Routine Consulting Provider: Jose Gilliam Reason for Consult: lower GI bleed, no prior c-scope, eval for c-scope EMERGENT Consult: No MD Notified: Yes Date Notified: 11/25/24 Time Notified: 15:22 Method of Notification: Text Reason For Visit: LEFT RENAL MASS Diagnosis Discharge Diagnosis (1) Left renal mass: Status: Acute Code(s): N28.89 - Other specified disorders of kidney and ureter Medications at Discharge Home Medications aspirin 81 mg tablet,delayed release (Adult Aspirin Regimen) 81 mg PO DAILY 11/22/24 carvedilol 6.25 mg tablet 6.25 mg PO BID 11/22/24 clopidogrel 75 mg tablet 75 mg PO DAILY 11/22/24 Held on 11/27/24. Instructions: Resume on 12/23/24. Hold until after your procedure with Dr. Campos. gemfibrozil 600 mg tablet 600 mg PO BID 11/22/24 isosorbide mononitrate 60 mg tablet,extended release 24 hr 60 mg PO DAILY 11/22/24 losartan 25 mg tablet 25 mg PO DAILY 11/22/24 multivitamin (Daily Multi-Vitamin tablet) 1 tab PO DAILY 11/22/24 vitamin B complex 1 tab PO DAILY 11/22/24 vitamins A,C,I-ixyd-icmcoy 2,148 mcg-113 mg-45 mg-17.4 mg tablet (Eye Multivitamin) 2 tab PO BID 11/22/24 Hospital Course Operations None Procedures Colonoscopy, EKG and - (CT abdomen pelvis) Summary of Care Provided Minutes Spent on Discharge: 35 Hospital Course: Patient is a 64-year-old male who presented to [facility] ED on 11/22/2024 with flulike symptoms and dark urine. Hospital course as noted below. Patient discharged home in stable condition on 11/27. 1. Large left renal mass with hydronephrosis and concern for UTI ? Urology followed. CT abdomen pelvis on admit showed a lobulated heterogenously enhancing lesions in the left kidney measuring up to 16.6 m with associated moderate hydronephrosis concerning for renal cell carcinoma with obstruction. UA mildly infectious appearing but urine culture with no growth. Initial plan was for left ureteral stent placement but given his clinical improvement, urology noted that it would be difficult to place stents given the large mass so will plan for outpatient nephrectomy once infection is cleared. Completed 5-day course of antibiotics while inpatient. Plan is for nephrectomy with urology in the next 1 to 2 weeks. 2. Mild KATHIA, resolved ? Creatinine 1.59 on admit, peak of 1.85 on 11/23. Improved, most recent creatinine 1.04 on 11/26. Baseline unknown. Patient with good urine output, suspect he returned to baseline. 3. Bright red blood per rectum with severe constipation ? GI followed. Patient with multiple episodes of bright red blood in the stool on the evening of 11/24 and morning of 11/25. CT abdomen pelvis notably showed fecal retention in the colon consistent with constipation. Patient denies any significant blood in the stool in the past. No pain with defecation at this time. Has never had a colonoscopy done. Hemoglobin down trended from 15.1 on admit to 12.1 on 11/25. Colonoscopy on 11/26 showed patchy moderate inflammation in the rectum secondary to colitis that was biopsied. Most likely ischemic colitis versus generalized inflammation. Hemoglobin remained stable at 12-13 on discharge. Continue laxatives as needed in the outpatient setting to maintain regular bowel movements. 4. History of CAD with stenting, hypertension, hyperlipidemia ? History of remote stenting x 4. Continue home Coreg, Imdur, aspirin, losartan and gemfibrozil. Will hold Plavix until after his nephrectomy has been completed. 5. Class II obesity ? BMI 37 on admit. Complicated hospital course, care and prognosis. Total clinical time spent by myself addressing the patient's medical issues, reviewing all the data, and collaborating with patient's care team: 35 minutes. Physical Exam Const alert, oriented x3 and no apparent distress Constitutional Narrative: Upper middle-aged male, class II obesity, mildly fatigued appearing, otherwise laying back comfortably in bed, conversing normally, in no acute distress. Stable. General Appearance: cooperative HEENT normocephalic, head/scalp atraumatic, hearing grossly normal bilaterally, nasal mucous membranes and turbinates normal and moist oral mucous membranes Eyes PERRL, EOMs intact bilaterally and conjunctivae normal Neck full ROM Chest inspection of chest normal Resp normal respiratory effort, normal air movement, no use of accessory muscles and clear to auscultation bilaterally Cardio regular rate, regular rhythm, no murmurs and peripheral pulses 2+ throughout GI GI Narrative: Abdomen soft, nontender and nondistended. Improved. Back/Spine normal ROM Extremity normal to inspection, full ROM and no pedal edema Skin no rashes or lesions noted Psych mental status grossly normal Weight / BMI Weight Weight: 120.519 kg Body Mass Index (BMI) 37.0 ABG / Lab / Microbiology Data 11/27/24 06:56 11/27/24 06:56 Laboratory: Laboratory Results - last 24 hr 11/27/24 06:56: WBC 13.0 H, RBC 4.29 L, Hgb 12.6 L, Hct 37.4 L, MCV 87.2, MCH 29.4, MCHC 33.7, RDW Std Deviation 46.5 H, RDW Coeff of Matilde 14.4, Plt Count 374, MPV 9.6, Sodium 135, Potassium 3.5, Chloride 106, Carbon Dioxide 16.5 L, Anion Gap 12, BUN 17, Creatinine 1.06, Estim Creat Clear Calc 93.00, Est GFR (MDRD) Non-Af 78, BUN/Creatinine Ratio 16.4, Glucose 111 H, Calcium 8.0 Microbiology: Microbiology 11/22/24 18:00 Blood Culture (Wb) - Left Hand Blood Culture - Preliminary No growth in 48 hours. 11/22/24 16:00 Blood Culture (Wb) - Anticubital Left Blood Culture - Preliminary No growth in 48 hours. 11/22/24 12:26 Urine, Clean Catch Urine Culture - Final Mixed Gram Positive Organisms 11/23/24 01:45 Mucosa - Nasopharyngeal Respiratory Panel (PCR) - Final 11/23/24 02:00 Nasal Secretion SARS-CoV-2 Antigen (Rapid) - Final D/C Instructions Discharge Diet: No restrictions DC O2, CPAP, BIPAP Needs Home O2 Discharge instructions: No Please Follow Up With: Farhat Campos MD When: Call [phone] for an appointment Meaningful Use Info Meaningful Use Meaningful Use Diagnoses (Choose all that apply): None applicable Ischemic Stroke Statin Dosing Therapy Reference: STATIN DOSE THERAPY REFERENCE: * Patients > 75 years receive moderate or high dose statin therapy. * Patients 75 years or YOUNGER should receive HIGH intensity statin dose unless contraindicated. You will be required to document reason for non-treatment if statin daily dose does not meet guidelines. HIGH DOSE STATIN THERAPY DAILY Atorvastatin > than or = to 40 mg Rosuvastatin > than or = to 20 mg Amlodipine + Atorvastatin > than or = to 2.5/40 mg Ezetimibe + Simvastatin 10/80 mg Simvastatin 80mg Discharge Plan Admission Admit Date/Time: 11/22/24 16:26 Primary Reason for Your Visit: abdominal pain Attending Provider: Davian Cornejo Primary Care Provider: Elizabeth Saldivar NP Consulting Providers: Farhat Campos; Belkis Mills; Wilman Bennett; Jose Gilliam Instructions Forms: Work / School Excuse Additional Instructions / Restrictions: Please hold your Plavix until after your procedure with Dr. Campos. Continue all other home indications as normal. Please call Dr. Campos's office to ensure an appointment/surgery date has been scheduled for you. Discharge Orders/Prescriptions Prescriptions: Continued carvedilol 6.25 mg tablet 6.25 mg PO BID gemfibrozil 600 mg tablet 600 mg PO BID Eye Multivitamin 2,148 mcg-113 mg-45 mg-17.4mg tablet 2 tab PO BID Rx Instructions: administer with AM and PM meals vitamin B complex Tablet 1 tab PO DAILY isosorbide mononitrate 60 mg tablet extended release 24 hr 60 mg PO DAILY losartan 25 mg tablet 25 mg PO DAILY aspirin [Adult Aspirin Regimen] 81 mg tablet,delayed release (DR/EC) 81 mg PO DAILY multivitamin [Daily Multi-Vitamin] Tablet 1 tab PO DAILY Held clopidogrel 75 mg tablet 75 mg PO DAILY Hold Instructions: Resume on 12/23/24. Hold until after your procedure with Dr. Campos. Referrals / Follow Up: Farhat Campos MD [Med Staff - Active Staff] - Elizabeth Saldivar SENIOR MANUFACTURING TEST ENGINEER, SENIOR MANUFACTURING TEST ENGINEER-C [Primary Care Provider] - Disposition Disposition (needs filled in before D/C Order can be placed): Home, Self Care Charges/Coding Visit Charges Inpatient E&M: 51409 Disch Hosp >30min
[2024-11-27] MEDS: 0.9% Saline Lock 10 ML Syringe IV (12:32)
--- NOTE | 2024-11-27 12:51 | CASEMGMT ---
Pt has an order for DC placed. LEXUS CM to pt room at this time. Pt at bedside. Pt states that he still feels safe discharging home today with his and denies the need for HHC or OP Tx. Pt denies any further questions, needs, or concerns at this time.
--- NOTE | 2024-11-27 13:21 | PHA.DC.MR.R ---
Pharmacy [place] [facility] Reconciliation Pharmacy Service has performed discharge medication reconciliation for this patient. The patient's discharge medication list was reviewed for discrepancies and discrepancies were resolved. Medications at Discharge Home Medications aspirin 81 mg tablet,delayed release (Adult Aspirin Regimen) 81 mg PO DAILY 11/22/24 carvedilol 6.25 mg tablet 6.25 mg PO BID 11/22/24 clopidogrel 75 mg tablet 75 mg PO DAILY 11/22/24 Held on 11/27/24. Instructions: Resume on 12/23/24. Hold until after your procedure with Dr. Campos. gemfibrozil 600 mg tablet 600 mg PO BID 11/22/24 isosorbide mononitrate 60 mg tablet,extended release 24 hr 60 mg PO DAILY 11/22/24 losartan 25 mg tablet 25 mg PO DAILY 11/22/24 multivitamin (Daily Multi-Vitamin tablet) 1 tab PO DAILY 11/22/24 vitamin B complex 1 tab PO DAILY 11/22/24 vitamins A,C,G-enpq-ixrhxd 2,148 mcg-113 mg-45 mg-17.4 mg tablet (Eye Multivitamin) 2 tab PO BID 11/22/24
[2024-11-27 14:05] VITALS: BP 133/64; PULSE 78; RESP 16; TEMP 36.9; O2SAT 95
--- NOTE | 2024-11-27 16:09 | NURSING ---
All documentation by manager nursing Felicita Santana reviewed by rehab nursing tech Leila Muro BSN, RN.
[2024-12-10 15:35] LABS: Pathologist Review Reviewed
== END 2024-11-27 14:55 | disposition home or self-care (01) | DRG 699 ==
LOC: ED 15:52 → MS3 16:03
PROVIDERS: Family Medicine; Internal Medicine Gastroenterology; Admitting Provider Internal Medicine; Emergency Provider Emergency Medicine; PCP Registered Nurse; Referring Provider Emergency Medicine; Visit Provider Hospitalist
PROC: 0DJD8ZZ Inspection of Lower Intestinal Tract, Via Natural or Artificial Opening Endoscopic (ICD-10-PCS; CPT 45378; principal; 2024-11-26 17:55)
DX: N28.89 Other specified disorders of kidney and ureter (principal); K92.1 Melena; D68.32 Hemorrhagic disorder due to extrinsic circulating anticoagulants; I10 Essential (primary) hypertension; E66.812 Obesity, class 2; N17.9 Acute kidney failure, unspecified; E78.5 Hyperlipidemia, unspecified; I25.10 Atherosclerotic heart disease of native coronary artery without angina pectoris; K57.30 Diverticulosis of large intestine without perforation or abscess without bleeding; K52.9 Noninfective gastroenteritis and colitis, unspecified; E86.0 Dehydration; Z68.37 Body mass index [BMI] 37.0-37.9, adult; Z79.02 Long term (current) use of antithrombotics/antiplatelets; Z79.82 Long term (current) use of aspirin; Z95.5 Presence of coronary angioplasty implant and graft; Z79.2 Long term (current) use of antibiotics; R31.9 Hematuria, unspecified; Z90.5 Acquired absence of kidney; R82.89 Other abnormal findings on cytological and histological examination of urine; N13.30 Unspecified hydronephrosis; N39.0 Urinary tract infection, site not specified
CPT/HCPCS: 36415; 74177; 80048; 80053; 81001; 83605; 83690; 83735; 84100; 84484; 85025; 85027; 87040; 87086; 87088; 87426; 87633; 88305; 93005; 94668; 97116; 97162; 97166; 97530; 97535; 97802; 99284; Q9967; A4216; J2405

== ENCOUNTER 2024-12-28 14:26 | Emergency (ER) | payer MEDICARE, SELFPAY ==
[2024-12-28 14:28] VITALS: BP 126/100; PULSE 98; RESP 18; TEMP 36.5; O2SAT 97; BMI 33.2
--- NOTE | 2024-12-28 14:55 | ED.VIS.GI ---
HPI HPI - GI History of Present Illness Chief Complaint: Constipation Informant: patient Abdominal Pain/Flank Pain Onset: Yesterday Context: Gradual Onset Timing: Continuous Quality: Aching Location: Diffuse Worsened by: Food Relieved by: Nothing Nausea/Vomiting/Emesis GI Symptom: Positive for Nausea and Vomiting Diarrhea/Melena/Hematochezia GI Symptom: Negative for Diarrhea, Melena or Hematochezia Associated Symptoms Associated Symptoms: Negative for Dysuria, Frequency or Hematuria Narrative Narrative: Patient presents with constipation since yesterday. Patient states he had been passing gas up until yesterday. Patient had a recent left nephrectomy 8 days ago at [facility]. Patient states he had a 12 pound tumor on his left kidney which was also removed. Patient has been taking his pain medication as prescribed. Patient states he has been decreasing the oxycodone frequency over the past few days. Patient states he has been taking stool softeners and laxatives with no improvement. Patient states he has been having some nausea and vomiting yesterday. Patient denies any hematemesis or coffee-ground emesis. Patient admits to aching over his mid abdomen. Patient states it is close to the midline. Patient admits to some subjective fevers but denies any chills. [facility] Medical History Anxiety Depression Non-smoker CPAP (continuous positive airway pressure) dependence Chest pain Sleep apnea Sleep apnea High triglycerides Hypertension Coronary artery disease Home Medications ?Medication ?Instructions ?Recorded ?Last Taken ?Type aspirin 81 mg tablet,delayed 81 mg PO DAILY 11/22/24 12/28/24 History release (Adult Aspirin Regimen) carvedilol 6.25 mg tablet 6.25 mg PO BID 11/22/24 12/28/24 History clopidogrel 75 mg tablet 75 mg PO DAILY 11/22/24 12/28/24 History gemfibrozil 600 mg tablet 600 mg PO BID 11/22/24 Unknown History Held on 12/28/24. Instructions: Ordered isosorbide mononitrate 60 mg 60 mg PO DAILY 11/22/24 12/28/24 History tablet,extended release 24 hr losartan 25 mg tablet 25 mg PO DAILY 11/22/24 12/28/24 History multivitamin (Daily Multi-Vitamin 1 tab PO DAILY 11/22/24 12/28/24 History tablet) vitamin B complex 1 tab PO DAILY 11/22/24 12/28/24 History acetaminophen 500 mg tablet (Pain 1,000 mg PO Q8 PRN pain 12/28/24 12/28/24 History Reliever (acetaminophen)) docusate sodium 100 mg capsule 100 mg PO BID 12/28/24 12/28/24 History (Stool Softener) magnesium hydroxide 400 mg/5 mL 30 ml PO DAILY PRN stomach upset 12/28/24 12/28/24 History oral suspension (Dulcolax (magnesium hydroxide)) Allergy/AdvReac Type Severity Reaction Status Date / Time No Known Allergies Allergy Verified 12/28/24 14:32 Surgical History S/P tonsillectomy History of coronary artery stent placement Status post placement of stent in right coronary artery Social History Smoking Status: Never smoker ROS ROS ED Constitutional Constitutional ED: Denies chills or fever(s) Eyes Eyes: Denies blurry vision or change in vision ENT ENT ED: Denies rhinorrhea or sore throat Cardiovascular Cardiovascular: Denies chest pain or palpitations Respiratory/Chest Respiratory/Chest: Denies cough or dyspnea Gastrointestinal Gastrointestinal: Reports abdominal pain, constipation, nausea and vomiting Genitourinary Genitourinary ED: Denies dysuria or hematuria Musculoskeletal Musculoskeletal: Denies back pain or neck pain Integumentary Denies abscess or rash Neurologic Neurologic: Denies headache(s) or weakness Allergic/Immunologic Allergic/Immunologic ED: Denies mouth swelling or urticaria EXAM Physical Exam Const Vital Signs: 12/28/24 14:28 12/28/24 16:27 Temperature 97.7 F L Temperature Source Oral Pulse Rate 98 82 Respiratory Rate 18 Blood Pressure 126/100 H 137/98 H Blood Pressure Mean 108 111 Pulse Ox 97 94 Oxygen Delivery Method Room Air Room Air Positive well nourished and well developed General Appearance ED: well developed and NAD HEENT Reports moist mucous membranes Neck supple and no JVD Resp normal respiratory effort and clear to auscultation bilaterally Cardio regular rate and regular rhythm GI Auscultation: normoactive bowel sounds Palpation: soft and tender epigastric, LLQ, RLQ, LUQ, RUQ, periumbilical and suprapubic; Negative for guarding or rebound tenderness present Neuro CN's II-XII intact bilaterally, moves all extremities, no sensory deficits noted and gait normal Sensorium / Orientation: alert Motor Exam: strength 5/5 throughout Psych mental status grossly normal Skin Skin Narrative: Abdominal incision is healing well. There is minimal erythema around the sugey. There is no fluctuance. There is no discharge or drainage noted. MDM MDM MDM Narrative Medical decision making narrative: Differential diagnose includes bowel obstruction, perforation, constipation, pancreatitis, dehydration, electrolyte abnormality, and urinary tract infection. CT scan of the abdomen and pelvis will be obtained to assess for bowel obstruction and perforation. CBC will be obtained to assess for leukocytosis and anemia. Comprehensive metabolic profile will be obtained to assess for hepatic function, renal function, and electrolyte abnormality. Lipase will be obtained to assess for pancreatitis. Urinalysis will be obtained to assess for urinary tract infection and hematuria. History & Record Review Additional record(s) reviewed:: Prior inpatient record, Prior ED visit and Prior labs Lab Data Attestation: I reviewed the patient's lab results. Lab results narrative: CBC was reviewed and was within limits. Comprehensive metabolic profile was reviewed. Creatinine was slightly elevated at 1.35. The remainder is within normal limits. Serum lactate was reviewed and was normal at 1.1. Lipase was reviewed and was normal at 25. Urinalysis was reviewed. There is no evidence of urinary tract infection or hematuria. Labs: Laboratory Results - last 24 hr 12/28/24 12/28/24 12/28/24 14:41 15:10 16:25 WBC 10.5 RBC 4.65 Hgb 13.1 Hct 40.9 MCV 88.0 MCH 28.2 MCHC 32.0 RDW Std Deviation 46.2 H RDW Coeff of Matilde 15.2 H Plt Count 417 MPV 8.8 Immature Gran % (Auto) 1.200 H Neut % (Auto) 71.1 H Lymph % (Auto) 17.8 L [place] % (Auto) 7.3 Eos % (Auto) 1.8 Baso % (Auto) 0.8 Absolute Neuts (auto) 7.5 Absolute Lymphs (auto) 1.87 Nucleated RBC % 0 Sodium 137 Potassium 3.9 Chloride 99 Carbon Dioxide 26.7 Anion Gap 11 BUN 16 Creatinine 1.35 H Estim Creat Clear Calc 69.10 Est GFR (MDRD) Non-Af 59 L BUN/Creatinine Ratio 12.1 Glucose 115 H Lactic Acid 1.1 Calcium 9.5 Total Bilirubin 0.36 AST 24 ALT 39 Alkaline Phosphatase 90 Total Protein 7.1 Albumin 3.7 Globulin 3.4 Albumin/Globulin Ratio 1.1 Lipase 25 Urine Color Yellow Urine Clarity Sl. Cloudy Urine pH 8.0 Ur Specific [place] 1.010 Urine Protein 15 H Urine Glucose (UA) Normal Urine Ketones Negative Urine Occult Blood Negative Urine Nitrite Negative Urine Bilirubin Negative Urine Urobilinogen Normal Ur Leukocyte Esterase Negative Urine RBC 0 SEEN Urine WBC 0-5 SEEN Ur Squamous Epith Cells 0-5 SEEN Amorphous Sediment 2+ Urine Bacteria 2+ Urine Mucus 0 SEEN Radiography Diagnostic Testing: Clinical Impression(s) from Imaging Studies Abdomen/Pelvis CT 12/28/24 15:05 IMPRESSION: 1. Status post left nephrectomy with 3.7 x 6.1 x 4.5 cm fluid collection within the nephrectomy bed, likely postoperative seroma. 2. Multiple mildly dilated small bowel loops, concerning for ileus. Reading [facility] scan of the abdomen and pelvis was obtained. There is a 3.7 x 6.1 x 4.5 cm fluid collection in the left nephrectomy bed which is most likely a postoperative seroma. There are multiple mildly dilated small bowel loops concerning for ileus. There is no evidence of bowel obstruction. There is air in the rectum. This was interpreted by the radiologist and was also independently reviewed by myself. Treatment and Re-Evaluation :: Patient was given IV fluids and Zofran. Patient was advised of his findings. Case was discussed with Dr. Bass, urologist on-call at [facility]. He felt that the patient could go home with strict return precautions. He recommended having the patient use a clear liquid diet. Patient was instructed to follow-up in 2 days with urology. Patient and family understood and were agreeable with the plan. All questions were answered. Discharge Plan Triage Chief Complaint: Constipation Other Complaint: Fever ED Provider: Zhao Boss Dx/Rx/DC Orders Clinical Impression: Postoperative ileus, Constipation Instructions: Ileus, ED Constipation (Adult) Prescriptions: No Action carvedilol 6.25 mg tablet 6.25 mg PO BID gemfibrozil 600 mg tablet 600 mg PO BID vitamin B complex Tablet 1 tab PO DAILY clopidogrel 75 mg tablet 75 mg PO DAILY isosorbide mononitrate 60 mg tablet extended release 24 hr 60 mg PO DAILY losartan 25 mg tablet 25 mg PO DAILY aspirin [Adult Aspirin Regimen] 81 mg tablet,delayed release (DR/EC) 81 mg PO DAILY multivitamin [Daily Multi-Vitamin] Tablet 1 tab PO DAILY acetaminophen [Pain Reliever (acetaminophen)] 500 mg tablet 1,000 mg PO Q8 PRN (Reason: pain) docusate sodium [Stool Softener] 100 mg capsule 100 mg PO BID magnesium hydroxide [Dulcolax (magnesium hydroxide)] 400 mg/5 mL suspension 30 ml PO DAILY PRN (Reason: stomach upset) Primary Care Provider: Elizabeth Saldivar NP Referrals: [facility] [Outside] - 2 Days Elizabeth Saldivar NP, TEACHING SUPERVISOR-C [Primary Care Provider] - Print Language: Irish Disposition Disposition: Home, Self Care
--- NOTE | 2024-12-28 15:05 | CT_ITS ---
PROCEDURE: ABDOMEN/PELVIS W IV CONT ONLY 12/28/2024 REASON FOR EXAM: ABDOMINAL PAIN TECHNIQUE: Abdomen and pelvis CT with intravenous contrast. Coronal and Sagittal reconstruction series were provided. PATIENT PREPARATION: Per protocol ORAL CONTRAST TYPE: None. AMOUNT: mL CONTRAST: Omnipaque 350 VOLUME: 100 mL Not Provided Gauge IV One or more dose reduction techniques were used (e.g., Automated exposure control, adjustment of the mA and/or kV according to patient size, use of iterative reconstruction technique. COMPARISON: CT abdomen and pelvis 11/22/2024 FINDINGS: Lung bases: Mild bibasilar atelectasis. Liver: Hepatomegaly, craniocaudal length 23.6 cm. Mild diffuse steatosis. No focal lesion. Gallbladder: No ductal dilation. Gallbladder is unremarkable. Spleen: No splenomegaly. Pancreas: Normal size without evidence of mass surrounding inflammation or ductal dilation. Adrenals: Unremarkable. Kidneys: Interval postoperative changes left nephrectomy. Within the nephrectomy bed, there is a 3.7 x 6.1 x 4.5 cm simple fluid attenuation collection (AP by TV by cc), which likely represents a postoperative seroma. The right kidney is unremarkable without abnormal mass or enhancement. Punctate right upper pole calculus without hydronephrosis. Bladder: Urinary bladder is unremarkable. Reproductive Organs: No pelvic mass. Bowel: Stomach is unremarkable. Multiple fluid-filled dilated small bowel loops, measuring up to 3.6 cm with caliber tapering along the region of bowel wall thickening in the left upper quadrant (series 601 image 65). Distal colonic loops are nondistended and content large amount of stool. Appendix: The appendix is not identified. There is no inflammatory process identified in the right lower quadrant to suggest appendicitis. Lymph nodes: No suspicious lymph node enlargement. Vasculature: Mild diffuse atherosclerotic calcifications are noted. Peritoneum / Retroperitoneum: Mild soft tissue stranding in the left lower quadrant. No pneumoperitoneum or ascites. Bones: Degenerative changes of the spine. Surgical sugey anterior abdominal wall with subcutaneous stranding secondary to recent postoperative changes. CT/Abdomen/Pelvis W IV Cont ONLY IMPRESSION: 1. Status post left nephrectomy with 3.7 x 6.1 x 4.5 cm fluid collection within the nephrectomy bed, likely postoperative seroma. 2. Multiple mildly dilated small bowel loops, concerning for ileus. Reading Location: [facility]
[2024-12-28] MEDS: Ondansetron 4 MG/2 ML Vial IV (15:14)
[2024-12-28] MEDS: 0.9% Normal Saline (1000mL) 1,000 ML 999 ML IV (15:14)
[2024-12-28 15:15] LABS: Absolute Lymphocyte Count 1.87 X10^3/uL (0.83-4.51); Absolute Neutrophil Count 7.5 X10^3/uL (2.0-7.7); Basophil# 0.08 X10^3/uL; Basophil% 0.8 % (0-1); Eosinophil# 0.19 X10^3/uL; Eosinophils% 1.8 % (0-5); Hematocrit 40.9 % (40-54); Hemoglobin 13.1 g/dL (13.0-16.5); Lymphocyte # 1.87 X10^3/ul (0.83-4.51); Lymphocyte % 17.8 % (19-41); Mean Corpuscular Hgb 28.2 pg (27.0-32.0); Mean Platelet Vol. 8.8 fl (6.2-12.0); Monocyte# 0.77 X10^3/uL; Monocyte% 7.3 % (0-10); NRBC Flagged by Analyzer 0 % (0-5); Neutrophil # 7.47 X10^3/uL (2.7-7.7); Neutrophil % 71.1 % (47-70); Platelet Count 417 K/mm3 (150-450); RBC Distribution Width CV 15.2 % (11.6-14.6); RBC Distribution Width SD 46.2 fl (35.1-43.9); Red Blood Count 4.65 M/mm3 (4.6-6.2); White Blood Count 10.5 K/mm3 (4.4-11.0)
[2024-12-28 15:31] LABS: ALB/GLOB Ratio 1.1 RATIO (0.9-2.4); AST(SGOT) 24 U/L (<=37); Alanine Aminotransfer ALT/SGPT 39 U/L (<=46); Albumin, Serum 3.7 g/dL (3.4-4.8); Alkaline Phosphatase 90 U/L (40-129); Anion Gap 11 (5-15); BUN 16 mg/dL (4-19); BUN/Creat Ratio 12.1 RATIO (10-20); Calcium,Total 9.5 mg/dL (7.6-11.0); Carbon Dioxide 26.7 mmol/L (21.0-32.0); Chloride 99 mmol/L (98-108); Creatinine, Serum 1.35 mg/dL (0.70-1.20); EST Glomerular Filtration Rate 59 (>60); Globulin 3.4 g/dL (2.2-4.2); Glucose 115 mg/dL (70-99); Lipase 25 U/L (13-75); Potassium 3.9 mmol/L (3.3-5.1); Protein, Total 7.1 g/dL (5.9-8.4); Sodium Level 137 mmol/L (133-145); Total Bilirubin 0.36 mg/dL (0.00-1.30)
[2024-12-28 15:41] LABS: Lactic Acid 1.1 mmol/L (0.0-2.0)
[2024-12-28 16:27] VITALS: BP 137/98; PULSE 82; O2SAT 94
[2024-12-28 16:32] LABS: Mucous, Urine 0 SEEN /hpf (<or=2+); Red Blood Cells-Urine 0 SEEN /hpf (0-5)
[2024-12-28 16:41] LABS: Color, Urine Yellow (Yellow); Glucose, Dipstick Normal (Normal); Ketone-Dipstick Negative (Negative); Leukocyte Esterase-Dipstick Negative /ul (Negative); Nitrite-Dipstick Negative (Negative); Occult Blood-Urine Negative /ul (Negative); Protein-Dipstick 15 mg/dl (Negative); Urine Bilirubin Dipstick Negative (Negative); Urine Clarity Sl. Cloudy (Clear); Urine Urobilinogen Normal (Normal)
[2024-12-28 16:55] LABS: White Blood Cells 0-5 SEEN /hpf (0-5)
[2024-12-28 16:56] LABS: Amorphous Sediment 2+; Bacteria 2+ /hpf (None Seen); Squamous Epithelial Cells - UA 0-5 SEEN /hpf (0-5)
[2024-12-28 18:00] VITALS: BP 132/99; PULSE 85; RESP 17; O2SAT 94
[2024-12-28 18:07] VITALS: BP 132/99; PULSE 85; RESP 17; TEMP 36.5; O2SAT 94
[2024-12-28 18:26] VITALS: BP 132/99; PULSE 85; RESP 17; TEMP 36.5; O2SAT 94
== END 2024-12-28 18:33 | disposition home or self-care (01) ==
PROVIDERS: Emergency Provider Emergency Medicine; PCP Registered Nurse; Visit Provider Emergency Medicine
DX: K91.89 Other postprocedural complications and disorders of digestive system (principal); K56.7 Ileus, unspecified; Y83.6 Removal of other organ (partial) (total) as the cause of abnormal reaction of the patient, or of later complication, without mention of misadventure at the time of the procedure; K59.00 Constipation, unspecified; I10 Essential (primary) hypertension; E78.1 Pure hyperglyceridemia; I25.10 Atherosclerotic heart disease of native coronary artery without angina pectoris; G47.30 Sleep apnea, unspecified; Z90.5 Acquired absence of kidney; Z95.5 Presence of coronary angioplasty implant and graft; Z79.82 Long term (current) use of aspirin; Z79.02 Long term (current) use of antithrombotics/antiplatelets; Z79.899 Other long term (current) drug therapy
CPT/HCPCS: 74177; 80053; 81001; 83605; 83690; 85025; 96361; 96374; 99285; Q9967; A4216; J2405